=== PATIENT | female | born 1985 | race Caucasian/White ===

== ENCOUNTER 2023-07-11 19:41 | Outpatient (OUT) | payer BC, SELFPAY ==
[2023-07-15 12:09] LABS: Age Gdln ACOG Testing Note (.); HPV Aptima Negative (Negative); IGP, Aptima HPV, rfx 16/18,45 Note (.)
== END 2023-07-11 19:42 | disposition home or self-care (01) ==
PROVIDERS: PCP Family Medicine; Visit Provider Physician Assistant
DX: Z01.419 Encounter for gynecological examination (general) (routine) without abnormal findings (principal)
CPT/HCPCS: 87624; G0145

== ENCOUNTER 2023-08-31 11:40 | Outpatient (OUT) | payer BC, SELFPAY ==
--- OUTSIDE RECORDS SUMMARY | 2023-08-31 11:42 | XMS_ITS | CCD ---
Author Name Unknown Address [address] [facility] [address] [place] [address] Organization [facility] Care Team Providers Care English Instructor Name Role Phone RICHARD, DR ROLLINS Admitting Unavailable HOUSE, DR CORREA Primary Care Unavailable RICHARD, DR ROLLINS Attending Unavailable RICHARD, DR ROLLINS Consulting Unavailable HOUSE, DR CORREA Primary Care Unavailable RICHARD, DR ROLLINS Admitting Unavailable RICHARD, DR ROLLINS Attending Unavailable RICHARD, DR ROLLINS Consulting Unavailable ZIEBER, DR DANIEL Guajardo Consulting Unavailable OZZY LEWIS Consulting Unavailable OZZY LEWIS Primary Care Unavailable OZZY LEWIS Admitting Unavailable OZZY LEWIS Attending Unavailable TIMMIS, DR SHAH Attending Unavailable TIMMIS, DR SHAH Consulting Unavailable TIMMIS, DR SHAH Admitting Unavailable OZZY LEWIS Primary Care Unavailable JOSHUA, OZZY Primary Care Unavailable TIMMIS, DR SHAH Consulting Unavailable TIMMIS, DR SHAH Admitting Unavailable TIMMIS, DR SHAH Attending Unavailable TIMMIS, DR SHAH Consulting Unavailable TIMMIS, DR SHAH Admitting Unavailable TIMMIS, DR SHAH Attending Unavailable OZZY LEWIS Primary Care Unavailable LAM MENDEZ Consulting Unavailable MD Ozzy Lewis Attending Unavailable MD Ozzy Lewis Attending Unavailable AYO RAMOS Attending Unavailable NICHOLAS EDWARD Attending Unavailable Allergies Allergy Classification Reported Allergen(s) Allergy Type Date of Onset Reaction(s) Facility (1 source) peanut allergenic extract Drug Allergy 3 [facility] Repository (1 source) peanut; Translations: [Peanuts] Food allergy (disorder) [facility] Repository (1 source) No Known Medication Allergies; Translations: [No Known Medication Allergies] Propensity to adverse reactions (disorder) [facility] Repository Problems Active Problems Problem Classification Problem Date Documented Da te Episodic/Chronic Essential hypertension (1 source) Essential (primary) hypertension; Translations: [ESSENTIAL PRIMARY HYPERTENSION] Onset: 03-23-2021 Chronic Other aftercare (1 source) Other fdc (current) drug therapy; Translations: [OTH MEDICAL LEADER CURRENT DRUG THERAPY] Onset: 03-23-2021 Episodic Other upper respiratory disease (1 source) Other specified disorders of nose and nasal sinuses; Translations: [OTH SPEC D/O NOSE NASAL SINUSES] Onset: 03-23-2021 Episodic Other upper respiratory disease (1 source) Hypertrophy of nasal turbinates; Translations: [HYPERTROPHY OF NASAL TURBINATES] Onset: 03-23-2021 Episodic Other upper respiratory infections (5 sources) Chronic maxillary sinusitis; Translations: [CHRONIC MAXILLARY SINUSITIS] Onset: 03-11-2021 Chronic Unclassified (1 source) CONTACT W/AND (SUSP) EXPOS COVID-19; Translations: [CONTACT W/AND (SUSP) EXPOS COVID-19] Onset: 03-31-2021 Past or Other Problems Problem Classification Problem Date Documented Date Episodic/Chronic Immunizations and screening for infectious disease (1 source) Encounter for screening for human papillomavirus (HPV); Translations: [ENC SCREENING HUMAN PAPILLOMAVIRUS] Onset: 09-22-2020 Episodic Nonmalignant breast conditions (4 sources) Unspecified lump in the right breast, lower outer quadrant; Translations: [UNS LUMP IN RT BREAST LW OUTR QUAD] Onset: 10-28-2020 Episodic Other screening for suspected conditions (not mental disorders or infectious disease) (4 sources) Encounter for screening for malignant neoplasm of cervix; Translations: [ENC SCREENING MALIG NEOPLASM CERV] Onset: 09-18-2020 Episodic Results Test Name Value Interpretation Reference Range Facility Physician Referralon 023 Physician Referral [id number] .[id number]:127 Normal [facility] Physician Referralon 023 Physician Referral [id number]. [id number]:127 Normal [facility] Physician Referral [id number]. [id number]:127 [facility] Ambulatory Visit Summaryon 0 12-13-2022 Ambulatory Visit Summary HENNY FORD :1985 Visit Date:12/13/2022 Ambulatory Visit Instructions Your Diagnosis BMI 35.0-35.9,adult Class 1 obesity due to excess calories in adult Physical exam Family hx of colon cancer FHx: genetic disorder Your Care Team Attending Physician - Ozzy Lewis MD Primary Care Physician - Ozzy Lewis MD This Is Your Medications List cetirizine (cetirizine 10 mg Tab) cholecalciferol (Vitamin D 1000 intl units (25 mcg) Tab) Procedures Performed section, History of nasal sinus surgery. Discharge Vitals Heart Rate (Peripheral) 62 Respiratory Rate 16 Blood Pressure 142/96 Height 175.26 cm Height 69 in Weight 109.7 kg Weight 241.34 lb BMI 35.71 Medications What How Much When Instructions Unchanged cetirizine (cetirizine 10 mg Tab) 1 Tablets By Mouth Every day Unchanged cholecalciferol (Vitamin D 1000 intl units (25 mcg) Tab) 1 Tablets By Mouth Every day Medications and Immunizations Administered Not Given SARS-CoV-2 mRNA (tozinameran 5y-11y) vac, Postpone due to refusal Allergies Peanuts (Hives) No Known Medication Allergies Normal [facility] Family Medicine Office/Clini c Noteon 12-13-2022 Family Medicine Office/Clinic Note Chief Complaint wellness PE HPI Staff Here for wellness PE new to the practice Establish Care: History: none Last provider: Dr Lewis when was in [place] before Any recent labs: none Health Maintenance UTD: Colonoscopy: never Mammogram: last 2 years, family hx breast cancer ( mom's side) Pelvic/Pap: 2021 covid: refused Acute: Current issues/complaints: none History of Present Illness - Here to establish. - CPE - with 4 kids - Fhx of Colon CA - Brother at 33 - Needs Genetic Counseling - Colonoscopy Review of Systems PHQ Score Initial Depression Screen Score: 0 Physical Exam Vitals & Measurements HR: 62(Peripheral) RR: 16 BP: 142/96 SpO2: 100% HT: 69 in HT: 175.26 cm WT: 109.7 kg WT: 241.34 lb BMI: 35.71 General: alert, no acute distress ENMT: oral mucosa moist, Cardiovascular: regular rate and rhythm, normal peripheral perfusion Respiratory: Lungs CTA, respirations non labored Extremities: no deformity, no trauma Neurological: oriented x 4, LOC appropriate for age, CN II-XII intact, motor strength equal & normal bilaterally, speech normal Assessment/Plan 1. Physical exam (Z00.00: Encounter for general adult medical examination without abnormal findings) Anticipatory guidance given. Discussed diet and exercise. Discussed immunizations. Labs ordered Ordered: CBC w/ Auto Diff Comprehensive Metabolic Panel [facility] External Ambulatory Referral [facility] External Ambulatory Referral Lipid Panel TSH With T4fr Reflex 2. Family hx of colon cancer (Z80.0: Family history of malignant neoplasm of digestive organs) - Will send for colonoscopy Ordered: CBC w/ Auto Diff Comprehensive Metabolic Panel [facility] External Ambulatory Referral [facility] External Ambulatory Referral Lipid Panel TSH With T4fr Reflex 3. FHx: genetic disorder (Z84.89: Family history of other specified conditions) - Send to genetic counseling Ordered: CBC w/ Auto Diff Comprehensive Metabolic Panel [facility] External Ambulatory Referral [facility] External Ambulatory Referral Lipid Panel TSH With T4fr Reflex 4. BMI 35.0-35.9,adult (Z68.35: Body mass index [BMI] 35.0-35.9, adult) - BMI education given. - Discussed diet and exercise Ordered: CBC w/ Auto Diff Comprehensive Metabolic Panel [facility] External Ambulatory Referral [facility] External Ambulatory Referral Lipid Panel TSH With T4fr Reflex 5. Class 1 obesity due to excess calories in adult (E66.09: Other obesity due to excess calories) - As above. Ordered: CBC w/ Auto Diff Comprehensive Metabolic Panel [facility] External Ambulatory Referral [facility] External Ambulatory Referral Lipid Panel TSH With T4fr Reflex Follow-up No qualifying data available Problem List/Past Medical History Ongoing Chronic maxillary sinusitis Essential hypertension Historical No qualifying data Procedure/Surgical History section, History of nasal sinus surgery. 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 Never Smokeless Tobacco Use:., 12/13/2022 Family History Primary malignant neoplasm of colon: Brother. Immunizations Vaccine Date Status Comments SARS-CoV-2 mRNA (tozinameran 5y-11y) vac - Not Given Postpone due to refusal diphtheria/pertussis, acel/tetanus adult 08/11/2021 Recorded influenza virus vaccine, inactivated 06/05/2012 Recorded influenza virus vaccine, inactivated 07/26/2011 Recorded diphtheria/pertussis, acel/tetanus adult 07/15/2011 Recorded Normal [facility] Comment on above: Result Comment: Elec tronically Signed By: Joshua NASSAR, Ozzy Doe\.br\Date and Time Signed: 12/13/22 17:24 EDT PREG HCG QUALon 03-17-2021 , QUAL Negative Normal NEGATIVE [facility] Comment on above: Performed By: #### P REG #### [facility] [address] [place], [place] [address] Marcus Rodrigez ASYMPTOMATIC COVID-19 ANTIGE Non 03-14-2021 EUA Statement SEE BELOW Normal [facility] Comment on above: Result Comment: This test has not been FDA cleared or approved, but has been authorized by the FDA under an Emergency Use Authorization (EUA) for use by authorized laboratories certified under CLIA that meet the requirements to perform moderate or high complexity testing. This test has been authorized only for the detection of proteins from SARS-CoV-2, not for any other viruses or pathogens. The emergency use of this test is authorized for the duration of the declaration that circumstances exist justifying the authorization of emergency use of in vitro diagnostic tests for detection and/or diagnosis of Covid-19 under section 564(b)(1) of the Act, 21 U.S.C. 360bbb-3(b)(1), unless the declaration is terminated or authorization is revoked sooner. Performed By: #### C VDAGA ####[facility] [address] [place], [place] [address]CwikdqMarcus Rodrigez SARS-CoV-2 (COVID-19) RNA DREW+probe Ql (Unsp spec) Negative Normal NEGATIVE [facility] Comment on above: Result Comment: Nega tive results are presumptive. They do not preclude infection and should not be used as the sole basis for treatment decisions. Additional confirmatory testing by a molecular method should be considered. Performed By: #### C VDAGA ####[facility] [address] [place] [id number] Rodrigez CBC AUTO DIFFon 03-04-2021 BASO # 0.0 103/ul Normal 0.0-0.1 [facility] Comment on above: Performed By: #### C BC ####[facility] [address] [place] [id number] Rain Basophils/100 WBC (Bld) 0.3 % Normal 0.2-2.0 [facility] Comment on above: Performed By: #### C BC ####[facility] [address] [place] [address] Rain EO # 0.4 103/ul Normal 0.0-0.7 [facility] Comment on above: Performed By: #### C BC ####[facility] [address] Rain Eosinophils/100 WBC (Bld) 4.6 % Normal 0.9-7.0 [facility] Comment on above: Performed By: #### C BC ####[facility] [address] [place] [address] Rain Erythrocyte distribution width (RBC) [Ratio] 13.6 % Normal 11.0-15.0 [facility] Comment on above: Performed By: #### C BC ####[facility] [address] [place] [id number] Rain Hematocrit (Bld) [Volume fraction] 41.4 % Normal 36.0-48.0 [facility] Comment on above: Performed By: #### C BC ####[facility] [address] [place] [id number] Rain Hemoglobin (Bld) [Mass/Vol] 13.4 g/dL Normal 12.0-16.0 [facility] Comment on above: Performed By: #### C BC ####[facility] [address] [place] [address] Rain IG # 0.03 10e3/ul Normal 0.00-0.03 [facility] Comment on above: Performed By: #### C BC ####[facility] [address] Rain IG % 0.4 % Normal 0.0-0.5 [facility] Comment on above: Performed By: #### C BC ####[facility] [address] Rain LYMPH # 2.6 103/ul Normal 1.2-3.8 [facility] Comment on above: Performed By: #### C BC ####[facility] [address] [place] [address] Rain Lymphocytes/100 WBC (Bld) 34.6 % Normal 20.5-60.0 [facility] Comment on above: Performed By: #### C BC ####[facility] [address] [place] [address] Rain MANUAL DIFF REQ NO Normal [facility] Comment on above: Performed By: #### C BC ####[facility] [address] [place] [address] Rain MCH (RBC) [Entitic mass] 27.7 pg Normal 26.7-34.0 [facility] Comment on above: Performed By: #### C BC ####[facility] [address] [place] [address] Rain MCHC (RBC) [Mass/Vol] 32.4 g/dL Normal 29.9-35.2 [facility] Comment on above: Performed By: #### C BC ####[facility] [address] [place] [address] Rain MCV (RBC) [Entitic vol] 85.7 fL Normal 81.0-99.0 [facility] Comment on above: Performed By: #### C BC ####[facility] [address] [place] [address] Rain MONO # 0.6 103/ul Normal 0.3-0.8 [facility] Comment on above: Performed By: #### C BC ####[facility] [address] [place], [place] [address]Isoecr Karen Monocytes/100 WBC (Bld) 7.8 % Normal 1.7-12.0 [facility] Comment on above: Performed By: #### C BC ####[facility] [address] [place], [place] [address]Pefpks Rain NEUT # 4.0 103/ul Normal 1.4-6.5 [facility] Comment on above: Performed By: #### C BC ####[facility] [address] [place], [place] [address]Frflrp Rain Neutrophils/100 WBC (Bld) 52.3 % Normal 43.0-75.0 [facility] Comment on above: Performed By: #### C BC ####[facility] [address] [place], [place] [address]Gerjsee Rodrigez Platelet mean volume (Bld) [Entitic vol] 10.7 fL Normal 9.5-13.5 [facility] Comment on above: Performed By: #### C BC ####[facility] [address] [place] [address]Smkgfn Rain PLT 291 103/ul Normal 150-450 [facility] Comment on above: Performed By: #### C BC ####[facility] [address] [place] [address]Oruqkr Rain RBC 4.83 106/ul Normal 4.20-5.40 [facility] Comment on above: Performed By: #### C BC ####[facility] [address] [place] [address]Hbjiku Rain WBC 7.6 103/ul Normal 4.0-11.0 [facility] Comment on above: Performed By: #### C BC ####[facility] [address] [place] [address]Oajhkq Karen PROTIMEon 03-04-2021 INR Coag (PPP) [Relative time] 1.00 {INR} Normal [facility] Comment on above: Performed By: #### P TT, PT ####[facility] [address] [place], [place] [address]GndrefMarcus Rodrigez INR GUIDELINES SEE BELOW Normal [facility] Comment on above: Result Comment: LEW RED INR: 2.0 - 3.0 CONDITIONS NOT LISTED BELOW 2.5 - 3.5 FOR PROSTHETIC HEART VALVE REPLACEMENT 2.5 - 3.5 RECURRENT THROMBOSIS Performed By: #### P TT, PT ####[facility] [address] [place] [address]Marcus Rodrigez PT Coag (PPP) [Time] 10.8 s Normal 9.0-11.6 [facility] Comment on above: Performed By: #### P TT, PT ####[facility] [address] [place] [id number] Rodrigez PTTon 03-04-2021 aPTT Coag (Bld) [Time] 27.9 s Normal 22.3-36.2 [facility] Comment on above: Performed By: #### P TT, PT ####[facility] [address] [place] [id number] Rodrigez CBC AUTO DIFFon 01-14-2021 BASO # 0.0 103/ul Normal 0.0-0.1 [facility] Comment on above: Performed By: #### C BC #### [facility] [address] [place], [place] [id number] Marcus Rain Basophils/100 WBC (Bld) 0.4 % Normal 0.2-2.0 [facility] Comment on above: Performed By: #### C BC #### [facility] [address] [place], [place] [id number] Marcus Rain EO # 0.4 103/ul Normal 0.0-0.7 [facility] Comment on above: Performed By: #### C BC #### [facility] [address] [place], [place] [phone] Marcus Rain Eosinophils/100 WBC (Bld) 4.6 % Normal 0.9-7.0 [facility] Comment on above: Performed By: #### C BC #### [facility] [address] [place], [place] [phone] Marcusjese Rodrigez Erythrocyte distribution width (RBC) [Ratio] 13.4 % Normal 11.0-15.0 [facility] Comment on above: Performed By: #### C BC #### [facility] [address] [place] [address] Marcusjese Rodrigez Hematocrit (Bld) [Volume fraction] 40.3 % Normal 36.0-48.0 [facility] Comment on above: Performed By: #### C BC #### [facility] [address] [place] [address] Marcus Rain Hemoglobin (Bld) [Mass/Vol] 13.3 g/dL Normal 12.0-16.0 [facility] Comment on above: Performed By: #### C BC #### [facility] [address] [place] [address] Marcusjese Rodrigez IG # 0.02 10e3/ul Normal 0.00-0.03 [facility] Comment on above: Performed By: #### C BC #### [facility] [address] [place] [address] Marcus Rain IG % 0.2 % Normal 0.0-0.5 [facility] Comment on above: Performed By: #### C BC #### [facility] [address] [place] [address] Marcus Rain LYMPH # 3.3 103/ul Normal 1.2-3.8 [facility] Comment on above: Performed By: #### C BC #### [facility] [address] [place] [address] Marcus Rodrigez Lymphocytes/100 WBC (Bld) 35.7 % Normal 20.5-60.0 [facility] Comment on above: Performed By: #### C BC #### [facility] [address] [place] [address] Marcus Rodrigez MANUAL DIFF REQ NO Normal [facility] Comment on above: Performed By: #### C BC #### [facility] [address] [place] [address] Marcus Rodrigez MCH (RBC) [Entitic mass] 27.9 pg Normal 26.7-34.0 [facility] Comment on above: Performed By: #### C BC #### [facility] [address] [place] [id number] Marcus Rodrigez MCHC (RBC) [Mass/Vol] 33.0 g/dL Normal 29.9-35.2 [facility] Comment on above: Performed By: #### C BC #### [facility] [address] [place] [id number] Marcus Rodrigez MCV (RBC) [Entitic vol] 84.7 fL Normal 81.0-99.0 [facility] Comment on above: Performed By: #### C BC #### [facility] [address] [place], [place] [phone] Marcus Rodrigez MONO # 0.7 103/ul Normal 0.3-0.8 [facility] Comment on above: Performed By: #### C BC #### [facility] [address] [place], [place] [phone] Marcus Rodrigez Monocytes/100 WBC (Bld) 7.1 % Normal 1.7-12.0 [facility] Comment on above: Performed By: #### C BC #### [facility] [address] [place], [place] [id number] Marcus Rodrigez NEUT # 4.9 103/ul Normal 1.4-6.5 [facility] Comment on above: Performed By: #### C BC #### [facility] [address] [place], [place] [id number] Marcus Rodrigez Neutrophils/100 WBC (Bld) 52.0 % Normal 43.0-75.0 [facility] Comment on above: Performed By: #### C BC #### [facility] [address] [place], [place] [id number] Marcus Rodrigez Platelet mean volume (Bld) [Entitic vol] 10.4 fL Normal 9.5-13.5 [facility] Comment on above: Performed By: #### C BC #### [facility] [address] [place], [place] [id number] Marcus Rain PLT 320 103/ul Normal 150-450 [facility] Comment on above: Performed By: #### C BC #### [facility] [address] [place], [place] [address] Marcus Rodrigez RBC 4.76 106/ul Normal 4.20-5.40 [facility] Comment on above: Performed By: #### C BC #### [facility] [address] [place], [place] [address] Marcus Rodrigez WBC 9.3 103/ul Normal 4.0-11.0 [facility] Comment on above: Performed By: #### C BC #### [facility] [address] [place], [place] [address] Marcus Rodrigez Covid-19 PCR (CVDTBH)on SARS-CoV-2 (COVID-19) RNA DREW+probe Ql (Unsp spec) Not detected Normal NOT DETECTED [facility] Comment on above: Result Comment: This test is not yet approved or cleared by the [place] FDA. When there are no FDA-approved or cleared tests available, and other criteria are met, FDA can make tests available under an emergency access mechanism called an Emergency Use Authorization (EUA). The EUA for this test is supported by the Supervisor Maintenance of Health and Human Service's (HHS's) declaration that circumstances exist to justify the emergency use of in vitro diagnostics for the detection and/or diagnosis of the virus that causes COVID-19. This EUA will remain in effect (meaning this test can be used) for the duration of the COVID-19 declaration justifying emergency of IVDs, unless it is terminated or revoked by FDA (after which the test may no longer be used). When diagnostic testing is negative, the possibility of a false negative should be considered in the context of a patient's recent exposures and the presence of clinical signs and symptoms consistent with SARS-CoV-2. Performed By: #### C VDTBH #### [facility] [address] [place], [place] [address] Marcus Rodrigez GLYCOHEMOGLOBIN A1Con 2020 ADA RECOMMENDATION ADA THERAPEUTIC TARGET 6.0 - 7.0 ACTION SUGGESTED > 7.0 Normal [facility] Comment on above: Performed By: #### A 1C ####[facility] [address] [place], [place] [address]Ivxslf Rain Glucose [Mass/Vol] 126 mg/dL Normal [facility] Comment on above: Performed By: #### A 1C ####[facility] [address] [place], [place] [address]Biythc Rain HbA1c (Bld) [Mass fraction] 6.0 % Normal <=6.0 [facility] Comment on above: Performed By: #### A 1C ####[facility] [address] [place], [place] [address]Zzbwpu Rain LIPID PROFILEon 01-14-2021 CHOL-HDL RATIO NORM SEE BELOW Normal [facility] Comment on above: Result Comment: 3.3 - 4.4 LOW RISK 4.4 - 7.1 AVERAGE RISK 7.1 - 11.0 MODERATE RISK >11.0 HIGH RISK Performed By: #### C MP, TSH, LIPID #### [facility] [address] [place], [place] [address] Marcus Rain Cholesterol [Mass/Vol] 180 mg/dL Normal <=200 [facility] Comment on above: Performed By: #### C MP, TSH, LIPID #### [facility] [address] [place], [place] [address] Marcus Rain Cholesterol in HDL [Mass/Vol] 52 mg/dL Normal [facility] Comment on above: Performed By: #### C MP, TSH, LIPID #### [facility] [address] [place], [place] [address] Marcus Rain Cholesterol in LDL [Mass/Vol] 107.8 mg/dL Normal [facility] Comment on above: Performed By: #### C MP, TSH, LIPID #### [facility] [address] [place], [place] [address] Marcus Rain Cholesterol.total/Cho lesterol in HDL [Mass ratio] 3.5 {ratio} Normal [facility] Comment on above: Performed By: #### C MP, TSH, LIPID #### [facility] [address] [place], [place] [address] Marcus Rain HDL NORMAL > or = 60 mg/dl - LO W CARDIOVASCULAR RISK <40 mg/dl - HIGH CARDIOVASCULAR RISK Normal [facility] Comment on above: Performed By: #### C MP, TSH, LIPID #### [facility] [address] [id number] Marcus Rain LDL CALC NORMAL SEE BELOW Normal [facility] Comment on above: Result Comment: <100 mg/dl OPTIMAL 100 - 129 mg/dl NEAR OR ABOVE OPTIMAL 130 - 159 mg/dl BORDERLINE HIGH 160 - 189 mg/dl HIGH >190 mg/dl VERY HIGH Performed By: #### C MP, TSH, LIPID #### [facility] [address] [address] Marcus Rain Triglyceride [Mass/Vol] 101 mg/dL Normal <=150 [facility] Comment on above: Performed By: #### C MP, TSH, LIPID #### [facility] [address] [id number] Marcus Rain VLDL CALC 20.2 mg/dL Normal [facility] Comment on above: Performed By: #### C MP, TSH, LIPID #### [facility] [address] [id number] Marcus Rain PROF 14(COMP METB)on 021 Albumin [Mass/Vol] 3.9 g/dL Normal 3.5-5.0 [facility] Comment on above: Performed By: #### C MP, TSH, LIPID #### [facility] [address] [place], [place] [id number] Marcus Rain Albumin/Globulin [Mass ratio] 1.1 {ratio} Normal [facility] Comment on above: Performed By: #### C MP, TSH, LIPID #### [facility] [address] [id number] Marcus Rain ALP [Catalytic activity/Vol] 79 U/L Normal 38-126 [facility] Comment on above: Performed By: #### C MP, TSH, LIPID #### [facility] [address] [id number] Marcus Rain ALT [Catalytic activity/Vol] 27 U/L Normal 9-52 [facility] Comment on above: Performed By: #### C MP, TSH, LIPID #### [facility] [address] [address] Marcus Rain Anion gap [Moles/Vol] 11.5 mmol/L Normal Th [facility] Comment on above: Performed By: #### C MP, TSH, LIPID #### [facility] [address] [address] Marcus Rain AST [Catalytic activity/Vol] 13 U/L Critically low 14-36 [facility] Comment on above: Performed By: #### C MP, TSH, LIPID #### [facility] [address] [address] Marcus Rain Bilirubin [Mass/Vol] 0.3 mg/dL Normal 0.2-1.3 [facility] Comment on above: Performed By: #### C MP, TSH, LIPID #### [facility] [address] [address] Marcus Rain Calcium [Mass/Vol] 9.6 mg/dL Normal 8.4-10.2 [facility] Comment on above: Performed By: #### C MP, TSH, LIPID #### [facility] [address] [address] Marcus Rain Chloride [Moles/Vol] 105 mmol/L Normal 98-107 [facility] Comment on above: Performed By: #### C MP, TSH, LIPID #### [facility] [address] [address] Marcus Rain CO2 [Moles/Vol] 28.2 mmol/L Normal 22.0-30.0 [facility] Comment on above: Performed By: #### C MP, TSH, LIPID #### [facility] [address] [address] Marcus Rain Creatinine [Mass/Vol] 0.68 mg/dL Normal 0.52-1.04 [facility] Comment on above: Performed By: #### C MP, TSH, LIPID #### [facility] [address] [address] Marcus Rain EGFR-AF COOK ISLANDER >60 Normal >=60 [facility] Comment on above: Performed By: #### C MP, TSH, LIPID #### [facility] [address] [id number] Marcus Rain EGFR-NON AF [place] ISLANDER >60 Normal >=60 [facility] Comment on above: Performed By: #### C MP, TSH, LIPID #### [facility] [address] [id number] Marcus Rain Globulin (S) [Mass/Vol] 3.5 g/dL Normal [facility] Comment on above: Performed By: #### C MP, TSH, LIPID #### [facility] [address] [phone] Marcus Rain Glucose [Mass/Vol] 98 mg/dL Normal 74-106 [facility] Comment on above: Performed By: #### C MP, TSH, LIPID #### [facility] [address] [place] [address] Marcus Rain Potassium [Moles/Vol] 3.7 mmol/L Normal 3.4-5.0 [facility] Comment on above: Performed By: #### C MP, TSH, LIPID #### [facility] [address] [address] Marcus Rain Protein [Mass/Vol] 7.4 g/dL Normal 6.1-8.2 [facility] Comment on above: Performed By: #### C MP, TSH, LIPID #### [facility] [address] [place], [place] [id number] Marcus Rain Sodium [Moles/Vol] 141 mmol/L Normal 137-145 [facility] Comment on above: Performed By: #### C MP, TSH, LIPID #### [facility] [address] [address] Marcus Rain Urea nitrogen [Mass/Vol] 18.0 mg/dL Critically high 7.0-17.0 [facility] Comment on above: Performed By: #### C MP, TSH, LIPID #### [facility] [address] [phone] Marcus Rain Urea nitrogen/Creatinine [Mass ratio] 26.5 mg/mg Normal [facility] Comment on above: Performed By: #### C MP, TSH, LIPID #### [facility] [address] [place], [place] [address] Marcus Rodrigez TSHon 01-14-2021 TSH 1.136 uIU/mL Normal 0.470-4.680 [facility] Comment on above: Performed By: #### C MP, TSH, LIPID #### [facility] [address] [place], [place] [address] Marcus Rain TSH RANGE SEE BELOW Normal [facility] Comment on above: Result Comment: <0.3 4 UIU/ml HYPERTHYROID 0.34-5.60 UIU/ml EUTHYROID >5.60 UIU/ml HYPOTHYROID Performed By: #### C MP, TSH, LIPID #### [facility] [address] [place], [place] [address] Marcus Rain MG MAMM DIAGNOSTIC 3D KARTHIKEYAN CA Don 10-28-2020 MG MAMM DIAGNOSTIC 3D KARTHIKEYAN CAD Patient: HENNY FORD Exam Date: 10/28/2020 : 1985 Gender:F Ordering : DR AYO RAMOS . Admission #: [id number] Family : Order #: [id number] CLICK HERE TO VIEW EXAM RADIOLOGY REPORT PROCEDURE: MAMMOGRAM DIAGNOSTIC 3D BILATERAL CAD, 10/28/2020, 10:35 ULTRASOUND BREAST RIGHT LIMITED, 10/28/2020, 11:12 COMPARISON: None. INDICATIONS: Lump in lower outer quadrant of right breast Calculator Name NCI Breast Cancer Risk Assessment Tool 5 Year Breast Cancer Risk 0.30% Lifetime Breast Cancer Risk 9.20% Personal Breast Cancer No Personal Ovarian Cancer No Treatments None Family Cancers Aunt-maternal with breast cancer at age 45; Grandfather-maternal with bone cancer at age 80; Uncle-maternal with liver cancer at age 60; Grandfather-paternal with pancreatic cancer at age 60. LOCATION: [facility] BREAST COMPOSITION: Heterogeneously dense, which may obscure small masses. FINDINGS: DIAGNOSTIC CATEGORY 1--NEGATIVE ASSESSMENT. RIGHT BREAST: A skin surface marker is present over the lower-outer quadrant palpable lump; no underlying mammographic abnormality. Ultrasound evaluation demonstrates normal appearing fibroglandular tissue. LEFT BREAST: No significant suspicious finding. RECOMMENDATIONS: CLINICAL EVALUATION. PLEASE NOTE: A NORMAL MAMMOGRAM DOES NOT EXCLUDE THE POSSIBILITY OF BREAST CANCER. A CLINICALLY SUSPICIOUS PALPABLE LUMP SHOULD BE BIOPSIED. Dictated by: Daniel Hampton M.D. on 10/28/2020 at 12:59 Approved by: Daniel Hampton M.D. on 10/28/2020 at 13:08 Normal [facility] US BREAST RIGHT LIMITEDon US BREAST RIGHT LIMITED Patient: HENNY FORD Exam Date: 10/28/2020 : 1985 Gender:F Ordering : DR AYO RAMOS . Admission #: [id number] Family : Order #: [id number] CLICK HERE TO VIEW EXAM RADIOLOGY REPORT PROCEDURE: MAMMOGRAM DIAGNOSTIC 3D BILATERAL CAD, 10/28/2020, 10:35 ULTRASOUND BREAST RIGHT LIMITED, 10/28/2020, 11:12 COMPARISON: None. INDICATIONS: Lump in lower outer quadrant of right breast Calculator Name NCI Breast Cancer Risk Assessment Tool 5 Year Breast Cancer Risk 0.30% Lifetime Breast Cancer Risk 9.20% Personal Breast Cancer No Personal Ovarian Cancer No Treatments None Family Cancers Aunt-maternal with breast cancer at age 45; Grandfather-maternal with bone cancer at age 80; Uncle-maternal with liver cancer at age 60; Grandfather-paternal with pancreatic cancer at age 60. LOCATION: [facility] BREAST COMPOSITION: Heterogeneously dense, which may obscure small masses. FINDINGS: DIAGNOSTIC CATEGORY 1--NEGATIVE ASSESSMENT. RIGHT BREAST: A skin surface marker is present over the lower-outer quadrant palpable lump; no underlying mammographic abnormality. Ultrasound evaluation demonstrates normal appearing fibroglandular tissue. LEFT BREAST: No significant suspicious finding. RECOMMENDATIONS: CLINICAL EVALUATION. PLEASE NOTE: A NORMAL MAMMOGRAM DOES NOT EXCLUDE THE POSSIBILITY OF BREAST CANCER. A CLINICALLY SUSPICIOUS PALPABLE LUMP SHOULD BE BIOPSIED. Dictated by: Daniel Hampton M.D. on 10/28/2020 at 12:59 Approved by: Daniel Hampton M.D. on 10/28/2020 at 13:08 Normal [facility] PAP ACOG PANEL 2: 30 to 65on 09-25-2020 . . Normal [facility] Comment on above: Result Comment: Perf ormed at: WB Performed By: #### [id number] #### [facility] [address] [place] [address] Marcus Rodrigez Age Gdln ACOG Testing 30-65 Normal [facility] Comment on above: Performed By: #### [id number] #### [facility] [address] [place] [address] Marcus Rodrigez DIAGNOSIS: Comment Normal [facility] Comment on above: Result Comment: NEGA TIVE FOR INTRAEPITHELIAL LESION OR MALIGNANCY. SPECIMEN REPROCESSED FOR INTERPRETATION. Performed at: WB Performed By: #### [id number] #### [facility] [address] [place] [address] Marcus Rain HPV Aptima Negative Normal Negative [facility] Comment on above: Result Comment: This nucleic acid amplification test detects fourteen high-risk HPV types (16,18,31,33,35,39,45,51,52,56,58,59,66,68) without differentiation. Performed at: =G Performed By: #### [id number] #### [facility] [address] [place] [address] Marcus Rodrigez Methodology: CTIM Normal [facility] Comment on above: Result Comment: The Thin Prep(R) Cfo was unable to read this specimen. Therefore a manual review was performed. Performed at: WB Performed By: #### [id number] #### [facility] [address] [place] [address] Marcus Rain Note: Comment Normal [facility] Comment on above: Result Comment: The Pap smear is a screening test designed to aid in the detection of premalignant and malignant conditions of the uterine cervix. It is not a diagnostic procedure and should not be used as the sole means of detecting cervical cancer. Both false-positive and false-negative reports do occur. . Performed at: WB Performed By: #### [id number] #### [facility] [address] [place] [address] Marcus Rodrigez Performed by: Comment Normal [facility] Comment on above: Result Comment: Vick Thakkar Orthopedic Coder (ASCP) Performed at: WB Performed By: #### [id number] #### [facility] [address] [place] [address] Marcus Rodrigez Specimen adequacy: Comment Normal [facility] Comment on above: Result Comment: Sati sfactory for evaluation. Endocervical and/or squamous metaplastic cells (endocervical component) are present. Performed at: WB Performed By: #### [id number] #### [facility] [address] [place], [place] [address] Marcus Rodrigez Encounters Encounter Date Encounter Type Care Provider Facility Start: 08-22-2023 End: 08-22-2023 ambulatory AYO RAMOS Not Available Start: 07-11-2023 End: 07-11-2023 ambulatory NICHOLAS EDWARD Not Available Start: 06-23-2023 End: 06-24-2023 ambulatory MD Ozzy Lewis Facility:[facility] Start: 12-13-2022 End: 12-14-2022 ambulatory MD Ozzy Lewis Facility:[facility] Start: 12-10-2022 ambulatory MD Ozzy Lewis Facility :[facility] Start: 12-10-2022 ambulatory MD Ozzy Lewis Facility :[facility] Start: 03-31-2021 Encounter for prepro cedural laboratory examination DR PABLO CHAMBERS [facility] Start: 03-17-2021 End: 03-17-[address] PABLO CHAMBERS Facility:[facility] Start: 03-14-2021 End: 03-15-[address] PABLO CHAMBERS Facility:[facility] Start: 03-14-2021 End: 03-15-2021 Encounter for preprocedural laboratory examination DR PABLO CHAMBERS Facility:[facility] Start: 03-04-2021 End: 03-05-2021 ambulatory OZZY LEWIS Facility:[facility] Start: 01-18-2021 Encounter for genera l adult medical examination without abnormal findings OZZY LEWIS [facility] Start: 01-13-2021 End: 01-14-2021 ambulatory OZZY LEWIS Facility:[facility] Start: 01-13-2021 End: 01-14-2021 Encounter for general adult medical examination without abnormal findings OZZY LEWIS Facility:[facility] Start: 10-28-2020 End: 10-29-[address] MADELINE FORD Facility:[facility] Start: 09-18-2020 End: 09-18-[address] AYO RAMOS Facility:[facility] Payers Date Payer Category Payer Unknown [id number] 2022 Unknown [id number] 2019 Unknown [id number] 1985 Unknown [id number] 2.16.84 [id number] 1985 Unknown [id number] 2.16.84 [id number] 1984 Unknown [id number] 2.16.84 [id number] 1984 Unknown [id number] 2.16.84 [id number] 1984 Unknown [id number] 2.16.84 [id number] 1984 Unknown [id number] 2.16.84 [id number] 1984 Unknown [id number] 2.16.8 [id number] 1984 Unknown [id number] 2.16.8 [id number] 1984 Unknown [id number] 2.16.84 [id number] 1984 Unknown [id number] 2.16.840 .[id number] Clinical Note 03-17-2021 Note Date & Type Note Facility 03-17-2021 Note OPERATIVE NOTE OPERATION DATE: 03-17-21 PRIMARY CARE PHYSICIAN:Dr. Lewis ANESTHETIC:General endotracheal. PREOPERATIVE DIAGNOSIS: 1. Bilateral chronic maxillary sinusitis. 2. Bilateral tahir bullosa. 3. Bilateral inferior turbinate hypertrophy. POSTOPERATIVE DIAGNOSIS: Same as above. PROCEDURE NAME:Bilateral maxillary antrostomy, removal of tahir bullosa and inferior turbinate submucosal resection. COMPLICATIONS: None. FINDINGS: Bilateral tahir bullosa and bilateral inferior turbinate hypertrophy. Sinus anatomy grossly normal. INDICATIONS: This 35 year-old woman presented with chronic maxillary sinusitis and nasal obstruction unresponsive to aggressive medical management. PROCEDURE: The patient was identified in the holding area and taken back to the OR where she was placed in the supine position. After induction of general endotracheal anesthesia, the table was turned, the head elevated 20 degrees; the face was draped in a sterile fashion. Afrin soaked pledgets were placed in each side of the nose and after waiting adequate time for decongestion the nose was copiously irrigated bilaterally. The right nose was then approached with the nasal endoscope and the middle turbinate and lateral nasal wall were injected with lidocaine 1% with 1:100,000 epinephrine. The same was done on the left hand side of the nose. After waiting adequate time for decongestion, the right nose was approached with the nasal endoscope. A curved scissor to the right was used to excise the tahir bullosa and it was removed with an ethmoid forceps. The posterior root of the middle turbinate was prophylactically cauterized to minimize the risk of postoperative bleeding. The uncinate process was incised and removed with a straight ethmoid forceps and then the natural ostium of the maxillary sinus was identified with the Kiara seeker and opened posteriorly with a straight cutting forceps and anteriorly with a back cutting forceps. The maxillary sinus was then irrigated. The right inferior turbinate was then injected with lidocaine 1% with 1:100,000 epinephrine. Attention was turned to the left nose and the tahir bullosa removal and maxillary antrostomy proceeded as it had on the right. Then the left inferior turbinate was injected with Lidocaine 1% with 1:100,000 epinephrine. Attention was then turned to the right nose, a stab incision was made in the anterior inferior turbinate and a caudal elevator used to create a tunnel along the medial surface of the turbinate bone. A 2.5 mm microdebrider was then used to exonerate the submucosal tissues of the turbinate and it was outfractured with a long nasal speculum. Attention was turned to the left inferior turbinate and the same procedure performed. Both sides of the nose were again copiously irrigated and the patient was awakened and taken to the Recovery Room in good condition. [facility] Signed and Approved by: DR PABLO CHAMBERS 03/24/2021 08:24:00 [facility] Summary Purpose Family History No Family History Records FoundNo Family History Records FoundNo Family History Records Found Advance Directives No Advanced Directives Records FoundNo Advanced Directives Records FoundNo Advanced Directives Records Found Additional Source Comments INFORMATION SOURCE (unrecogn ized section and content) DATE CREATED AUTHOR 04/02/2021 [facility] DATE CREATED AUTHOR AUTHOR'S ORGANIZ ATION 06/26/2023 [facility] DATE CREATED AUTHOR AUTHOR'S ORGANIZ ATION 08/22/2023 [facility] FOR RECORDS PERTAINING TO PATIENTS WHO ARE OR HAVE BEEN ENROLLED IN A CHEMICAL DEPENDENCY/SUBSTANCEABUSE PROGRAM, SOME INFORMATION MAY BE OMITTED. This clinical summary was aggregated from multiple sources. Caution should be exercised in using it in the provision of clinical care. This summary normalizes information from multiple sources, and as a consequence, information in this document may materially change the coding, format and clinical context of patient data. In addition, data may be omitted in some cases. CLINICAL DECISIONS SHOULD BE BASED ON THE PRIMARY CLINICAL RECORDS. [facility]. provides no warranty or guarantee of the accuracy or completeness of information in this document.
--- NOTE | 2023-08-31 11:46 | US_ITS ---
The [address] [address] Patient Name: HENNY FORD MRN: [id number] date: 1985 Sex: F Assigned Patient Location: US Current Patient Location: US Accession/Order Number: [id number] Exam Date: 08/31/2023 11:48 Report Date: 08/31/2023 12:33 At the request of: AYO RAMOS Procedure: US pelvis w/ transvaginal EXAMINATION: US pelvis w/ transvaginal HISTORY: pelvic pain in female R10.2 COMPARISON: No relevant comparison available. FINDINGS: The uterus is normal in size, contour and echotexture, anteverted, retroflexed. The uterus measures 7.7 x 4.4 x 4.6 cm. The endometrium measures 7.4 mm, normal. Linear hyperechogenicity identified within the endometrial cavity, this appears to extend into the anterior myometrium The right ovary is normal measuring 2.4 x 2.4 x 2.0 cm. Normal color and Doppler The left ovary is normal measuring 3.0 x 2.2 x 1.5 cm. Normal color and Doppler No free fluid US/US pelvis w/ transvaginal IMPRESSION: Suspected extension of the IUD into the anterior myometrium Electronically authenticated by: EVER KRISHNA Date: 08/31/2023 12:33
== END 2023-08-31 11:41 | disposition home or self-care (01) ==
LOC: US 11:40
PROVIDERS: PCP Family Medicine; Visit Provider Obstetrics & Gynecology
DX: R10.2 Pelvic and perineal pain (principal); Z97.5 Presence of (intrauterine) contraceptive device
CPT/HCPCS: 76830; 76856

== ENCOUNTER 2023-08-31 12:17 | Outpatient (OUT) | payer BC, SELFPAY ==
--- OUTSIDE RECORDS SUMMARY | 2023-08-31 12:20 | XMS_ITS | CCD ---
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 Name Role Phone RICHARD, DR ROLLINS Admitting [...] Unavailable LAM MENDEZ Consulting Unavailable MD Ozzy Leiws Attending Unavailable MD Ozzy Lewis Attending Unavailable AYO RAMOS Attending Unavailable NICHOLAS EDWARD Attending Unavailable Allergies Allergy Classification Reported Allergen(s) Allergy Type Date of Onset Reaction(s) Facility (1 source) peanut allergenic extract Drug Allergy 3 [facility] Repository (1 source) peanut; Translations: [Peanuts] Food allergy (disorder) [facility] Repository (1 source) No Known Medication Allergies; Translations: [No Known Medication Allergies] Propensity to adverse reactions (disorder) [facility] Repository Problems Active Problems Problem Classification Problem Date Documented Da te Episodic/Chronic Essential hypertension (1 source) Essential (primary) hypertension; Translations: [ESSENTIAL PRIMARY HYPERTENSION] Onset: 03-23-2021 Chronic Other aftercare (1 source) Other penitentiary (current) drug therapy; Translations: [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 00CD:127 Normal [facility] Physician Referral [id number]#1. 00CD:127 [facility] Ambulatory Visit Summaryon 0 12-13-2022 Ambulatory Visit [...] Last provider: Dr Lewis when was in [place] before Any recent labs: none Health Maintenance [...] CBC w/ Auto Diff Comprehensive Metabolic Panel [facility] [place] Ref[place] [facility] [place] Ref[place] Lipid Panel TSH With T4fr Reflex 2. Family hx of colon cancer (Z80.0: Family history of malignant neoplasm of digestive organs) - Will send for colonoscopy Ordered: CBC w/ Auto Diff Comprehensive Metabolic Panel [facility] [place] [facility] [place] Ambulatory Referral Lipid Panel TSH With T4fr Reflex 3. FHx: genetic disorder (Z84.89: Family history of other specified conditions) - Send to genetic counseling Ordered: CBC w/ Auto Diff Comprehensive Metabolic Panel [facility] [place] [facility] [place] Ambulatory Referral Lipid Panel TSH With T4fr Reflex 4. BMI 35.0-35.9,adult (Z68.35: Body mass index [BMI] 35.0-35.9, adult) - BMI education given. - Discussed diet and exercise Ordered: CBC w/ Auto Diff Comprehensive Metabolic Panel [facility] [place] [facility] [place] Ambulatory Referral Lipid Panel TSH With T4fr Reflex 5. Class 1 obesity due to excess calories in adult (E66.09: Other obesity due to excess calories) - As above. Ordered: CBC w/ Auto Diff Comprehensive Metabolic Panel [facility] [place] Ref[place] [facility] [place] Ambulatory Referral Lipid [...] diphtheria/pertussis, acel/tetanus adult 07/15/2011 Recorded Normal [facility] Comment on above: Result Comment: Elec tronically Signed By: Joshua NASSAR, Ozzy Doe\.br\Date and Time Signed: 12/13/22 17:24 EDT PREG HCG QUALon 03-17-2021 , QUAL Negative Normal NEGATIVE [facility] Comment on above: Performed By: #### P REG #### [facility] [address] [place], [place] [address] Marcus Rodrigez ASYMPTOMATIC COVID-19 ANTIGE Non 03-14-2021 EUA Statement SEE BELOW Normal [facility] Comment on above: Result Comment: This test [...] revoked sooner. Performed By: #### C VDAGA ####[facility] [address] [place], [place] [address]IssttjMarcus Rodrigez SARS-CoV-2 (COVID-19) RNA DREW+probe Ql (Unsp spec) Negative Normal NEGATIVE [facility] Comment on above: Result Comment: Nega tive results are presumptive. They do not preclude infection and should not be used as the sole basis for treatment decisions. Additional confirmatory testing by a molecular method should be considered. Performed By: #### C VDAGA ####[facility] [address] [place] [id number] Rodrigez CBC AUTO DIFFon 03-04-2021 BASO # 0.0 103/ul Normal 0.0-0.1 [facility] Comment on above: Performed By: #### C BC ####[facility] [address] [place] [id number] Rain Basophils/100 WBC (Bld) 0.3 % Normal 0.2-2.0 [facility] Comment on above: Performed By: #### C BC ####[facility] [address] [place] [address] Rain EO # 0.4 103/ul Normal 0.0-0.7 [facility] Comment on above: Performed By: #### C BC ####[facility] [address] Rain Eosinophils/100 WBC (Bld) 4.6 % Normal 0.9-7.0 [facility] Comment on above: Performed By: #### C BC ####[facility] [address] [place] [address] Rain Erythrocyte distribution width (RBC) [Ratio] 13.6 % Normal 11.0-15.0 [facility] Comment on above: Performed By: #### C BC ####[facility] [address] [place] [id number] Rain Hematocrit (Bld) [Volume fraction] 41.4 % Normal 36.0-48.0 [facility] Comment on above: Performed By: #### C BC ####[facility] [address] [place] [id number] Rain Hemoglobin (Bld) [Mass/Vol] 13.4 g/dL Normal 12.0-16.0 [facility] Comment on above: Performed By: #### C BC ####[facility] [address] [place] [address] Rain IG # 0.03 10e3/ul Normal 0.00-0.03 [facility] Comment on above: Performed By: #### C BC ####[facility] [address] Rain IG % 0.4 % Normal 0.0-0.5 [facility] Comment on above: Performed By: #### C BC ####[facility] [address] Rain LYMPH # 2.6 103/ul Normal 1.2-3.8 [facility] Comment on above: Performed By: #### C BC ####[facility] [address] [place] [address] Rain Lymphocytes/100 WBC (Bld) 34.6 % Normal 20.5-60.0 [facility] Comment on above: Performed By: #### C BC ####[facility] [address] [place] [address] Rain MANUAL DIFF REQ NO Normal [facility] Comment on above: Performed By: #### C BC ####[facility] [address] [place] [address] Rain MCH (RBC) [Entitic mass] 27.7 pg Normal 26.7-34.0 [facility] Comment on above: Performed By: #### C BC ####[facility] [address] [place] [address] Rain MCHC (RBC) [Mass/Vol] 32.4 g/dL Normal 29.9-35.2 [facility] Comment on above: Performed By: #### C BC ####[facility] [address] [place] [address] Rain MCV (RBC) [Entitic vol] 85.7 fL Normal 81.0-99.0 [facility] Comment on above: Performed By: #### C BC ####[facility] [address] [place] [address] Rain MONO # 0.6 103/ul Normal 0.3-0.8 [facility] Comment on above: Performed By: #### C BC ####[facility] [address] [place], [place] [address]Nexfzu Karen Monocytes/100 WBC (Bld) 7.8 % Normal 1.7-12.0 [facility] Comment on above: Performed By: #### C BC ####[facility] [address] [place], [place] [address]Awviwn Rain NEUT # 4.0 103/ul Normal 1.4-6.5 [facility] Comment on above: Performed By: #### C BC ####[facility] [address] [place], [place] [address]Rbwjpj Rain Neutrophils/100 WBC (Bld) 52.3 % Normal 43.0-75.0 [facility] Comment on above: Performed By: #### C BC ####[facility] [address] [place], [place] [address]Gerjese Rodrigez Platelet mean volume (Bld) [Entitic vol] 10.7 fL Normal 9.5-13.5 [facility] Comment on above: Performed By: #### C BC ####[facility] [address] [place] [address]Qdnzms Rain PLT 291 103/ul Normal 150-450 [facility] Comment on above: Performed By: #### C BC ####[facility] [address] [place] [address]Mfzynu Rain RBC 4.83 106/ul Normal 4.20-5.40 [facility] Comment on above: Performed By: #### C BC ####[facility] [address] [place] [address]Debjfi Rain WBC 7.6 103/ul Normal 4.0-11.0 [facility] Comment on above: Performed By: #### C BC ####[facility] [address] [place] [address]Xajfyr Karen PROTIMEon 03-04-2021 INR Coag (PPP) [Relative time] 1.00 {INR} Normal [facility] Comment on above: Performed By: #### P TT, PT ####[facility] [address] [place], [place] [address]HmhscoMarcus Rodrigez INR GUIDELINES SEE BELOW Normal [facility] Comment on above: Result Comment: LEW RED INR: 2.0 - 3.0 CONDITIONS NOT LISTED BELOW 2.5 - 3.5 FOR PROSTHETIC HEART VALVE REPLACEMENT 2.5 - 3.5 RECURRENT THROMBOSIS Performed By: #### P TT, PT ####[facility] [address] [place] [address]Marcus Rodrigez PT Coag (PPP) [Time] 10.8 s Normal 9.0-11.6 [facility] Comment on above: Performed By: #### P TT, PT ####[facility] [address] [place] [id number] Rodrigez PTTon 03-04-2021 aPTT Coag (Bld) [Time] 27.9 s Normal 22.3-36.2 [facility] Comment on above: Performed By: #### P TT, PT ####[facility] [address] [place] [id number] Rodrigez CBC AUTO DIFFon 01-14-2021 BASO # 0.0 103/ul Normal 0.0-0.1 [facility] Comment on above: Performed By: #### C BC #### [facility] [address] [place], [place] [address] Marcus Rain Basophils/100 WBC (Bld) 0.4 % Normal 0.2-2.0 [facility] Comment on above: Performed By: #### C BC #### [facility] [address] [place], [place] [address] Marcus Rain EO # 0.4 103/ul Normal 0.0-0.7 [facility] Comment on above: Performed By: #### C BC #### [facility] [address] [place], [place] [address] Marcus Rain Eosinophils/100 WBC (Bld) 4.6 % Normal 0.9-7.0 [facility] Comment on above: Performed By: #### C BC #### [facility] [address] [place], [place] [address] Marcusjese Rodrigez Erythrocyte distribution width (RBC) [Ratio] 13.4 % Normal 11.0-15.0 [facility] Comment on above: Performed By: #### C BC #### [facility] [address] [place] [address] Marcusjese Rodrigez Hematocrit (Bld) [Volume fraction] 40.3 % Normal 36.0-48.0 [facility] Comment on above: Performed By: #### C BC #### [facility] [address] [place] [address] Marcus Rain Hemoglobin (Bld) [Mass/Vol] 13.3 g/dL Normal 12.0-16.0 [facility] Comment on above: Performed By: #### C BC #### [facility] [address] [place] [address] Marcusjese Rodrigez IG # 0.02 10e3/ul Normal 0.00-0.03 [facility] Comment on above: Performed By: #### C BC #### [facility] [address] [place] [address] Marcus Rain IG % 0.2 % Normal 0.0-0.5 [facility] Comment on above: Performed By: #### C BC #### [facility] [address] [place] [address] Marcus Rain LYMPH # 3.3 103/ul Normal 1.2-3.8 [facility] Comment on above: Performed By: #### C BC #### [facility] [address] [place] [address] Marcus Rodrigez Lymphocytes/100 WBC (Bld) 35.7 % Normal 20.5-60.0 [facility] Comment on above: Performed By: #### C BC #### [facility] [address] [place] [address] Marcus Rodrigez MANUAL DIFF REQ NO Normal [facility] Comment on above: Performed By: #### C BC #### [facility] [address] [place] [address] Marcus Rodrigez MCH (RBC) [Entitic mass] 27.9 pg Normal 26.7-34.0 [facility] Comment on above: Performed By: #### C BC #### [facility] [address] [place] [id number] Marcus Rodrigez MCHC (RBC) [Mass/Vol] 33.0 g/dL Normal 29.9-35.2 [facility] Comment on above: Performed By: #### C BC #### [facility] [address] [place] [id number] Marcus Rodrigez MCV (RBC) [Entitic vol] 84.7 fL Normal 81.0-99.0 [facility] Comment on above: Performed By: #### C BC #### [facility] [address] [place], [place] [address] Marcus Rodrigez MONO # 0.7 103/ul Normal 0.3-0.8 [facility] Comment on above: Performed By: #### C BC #### [facility] [address] [place], [place] [address] Marcus Rodrigez Monocytes/100 WBC (Bld) 7.1 % Normal 1.7-12.0 [facility] Comment on above: Performed By: #### C BC #### [facility] [address] [place], [place] [address] Marcus Rodrigez NEUT # 4.9 103/ul Normal 1.4-6.5 [facility] Comment on above: Performed By: #### C BC #### [facility] [address] [place], [place] [address] Marcus Rodrigez Neutrophils/100 WBC (Bld) 52.0 % Normal 43.0-75.0 [facility] Comment on above: Performed By: #### C BC #### [facility] [address] [place], [place] [address] Marcus Rodrigez Platelet mean volume (Bld) [Entitic vol] 10.4 fL Normal 9.5-13.5 [facility] Comment on above: Performed By: #### C BC #### [facility] [address] [place], [place] [address] Marcus Rain PLT 320 103/ul Normal 150-450 [facility] Comment on above: Performed By: #### C BC #### [facility] [address] [place], [place] [address] Marcus Rodrigez RBC 4.76 106/ul Normal 4.20-5.40 [facility] Comment on above: Performed By: #### C BC #### [facility] [address] [place], [place] [address] Marcus Rodrigez WBC 9.3 103/ul Normal 4.0-11.0 [facility] Comment on above: Performed By: #### C BC #### [facility] [address] [place], [place] [address] Marcus Rodrigez Covid-19 PCR (CVDTBH)on SARS-CoV-2 (COVID-19) RNA DREW+probe Ql (Unsp spec) Not detected Normal NOT DETECTED [facility] Comment on above: Result Comment: This test is not yet approved or cleared by the [place] FDA. When there are no FDA-approved or cleared tests available, and other criteria are met, FDA can make tests available under an emergency access mechanism called an Emergency Use Authorization (EUA). The EUA for this test is supported by the Waste Disposal Leakage Tester of Health and Human Service's (HHS's) declaration [...] SARS-CoV-2. Performed By: #### C VDTBH #### [facility] [address] [place], [place] [address] Marcus Rodrigez GLYCOHEMOGLOBIN A1Con 2020 ADA RECOMMENDATION ADA THERAPEUTIC TARGET 6.0 - 7.0 ACTION SUGGESTED > 7.0 Normal [facility] Comment on above: Performed By: #### A 1C ####[facility] [address] [place], [place] [address]Yzxmdx Rain Glucose [Mass/Vol] 126 mg/dL Normal [facility] Comment on above: Performed By: #### A 1C ####[facility] [address] [place], [place] [address]Kipcls Rain HbA1c (Bld) [Mass fraction] 6.0 % Normal <=6.0 [facility] Comment on above: Performed By: #### A 1C ####[facility] [address] [place], [place] [address]Cvacra Rain LIPID PROFILEon 01-14-2021 CHOL-HDL RATIO NORM SEE BELOW Normal [facility] Comment on above: Result Comment: 3.3 - 4.4 LOW RISK 4.4 - 7.1 AVERAGE RISK 7.1 - 11.0 MODERATE RISK >11.0 HIGH RISK Performed By: #### C MP, TSH, LIPID #### [facility] [address] [place], [place] [address] Marcus Rain Cholesterol [Mass/Vol] 180 mg/dL Normal <=200 [facility] Comment on above: Performed By: #### C MP, TSH, LIPID #### [facility] [address] [place], [place] [address] Marcus Rain Cholesterol in HDL [Mass/Vol] 52 mg/dL Normal [facility] Comment on above: Performed By: #### C MP, TSH, LIPID #### [facility] [address] [place], [place] [address] Marcus Rain Cholesterol in LDL [Mass/Vol] 107.8 mg/dL Normal [facility] Comment on above: Performed By: #### C MP, TSH, LIPID #### [facility] [address] [place], [place] [address] Marcus Rain Cholesterol.total/Cho lesterol in HDL [Mass ratio] 3.5 {ratio} Normal [facility] Comment on above: Performed By: #### C MP, TSH, LIPID #### [facility] [address] [place], [place] [address] Marcus Rain HDL NORMAL > or = 60 mg/dl - LO W CARDIOVASCULAR RISK <40 mg/dl - HIGH CARDIOVASCULAR RISK Normal [facility] Comment on above: Performed By: #### C MP, TSH, LIPID #### [facility] [address] [place] [id number] Marcus Rain LDL CALC NORMAL SEE BELOW Normal [facility] Comment on above: Result Comment: <100 mg/dl OPTIMAL 100 - 129 mg/dl NEAR OR ABOVE OPTIMAL 130 - 159 mg/dl BORDERLINE HIGH 160 - 189 mg/dl HIGH >190 mg/dl VERY HIGH Performed By: #### C MP, TSH, LIPID #### [facility] [address] [place] [address] Marcus Rain Triglyceride [Mass/Vol] 101 mg/dL Normal <=150 [facility] Comment on above: Performed By: #### C MP, TSH, LIPID #### [facility] [address] [place] [id number] Marcus Rain VLDL CALC 20.2 mg/dL Normal [facility] Comment on above: Performed By: #### C MP, TSH, LIPID #### [facility] [address] [place] [id number] Marcus Rain PROF 14(COMP METB)on 021 Albumin [Mass/Vol] 3.9 g/dL Normal 3.5-5.0 [facility] Comment on above: Performed By: #### C MP, TSH, LIPID #### [facility] [address] [place], [place] [address] Marcus Rain Albumin/Globulin [Mass ratio] 1.1 {ratio} Normal [facility] Comment on above: Performed By: #### C MP, TSH, LIPID #### [facility] [address] [place] [phone] Marcus Rain ALP [Catalytic activity/Vol] 79 U/L Normal 38-126 [facility] Comment on above: Performed By: #### C MP, TSH, LIPID #### [facility] [address] [place] [phone] Marcus Rain ALT [Catalytic activity/Vol] 27 U/L Normal 9-52 [facility] Comment on above: Performed By: #### C MP, TSH, LIPID #### [facility] [address] [place] [address] Marcus Rain Anion gap [Moles/Vol] 11.5 mmol/L Normal [facility] Comment on above: Performed By: #### C MP, TSH, LIPID #### [facility] [address] [place] [address] Marcus Rain AST [Catalytic activity/Vol] 13 U/L Critically low 14-36 [facility] Comment on above: Performed By: #### C MP, TSH, LIPID #### [facility] [address] [place] [address] Marcus Rain Bilirubin [Mass/Vol] 0.3 mg/dL Normal 0.2-1.3 [facility] Comment on above: Performed By: #### C MP, TSH, LIPID #### [facility] [address] [place] [address] Marcus Rain Calcium [Mass/Vol] 9.6 mg/dL Normal 8.4-10.2 [facility] Comment on above: Performed By: #### C MP, TSH, LIPID #### [facility] [address] [place] [address] Marcus Rain Chloride [Moles/Vol] 105 mmol/L Normal 98-107 [facility] Comment on above: Performed By: #### C MP, TSH, LIPID #### [facility] [address] [place] [address] Marcus Rain CO2 [Moles/Vol] 28.2 mmol/L Normal 22.0-30.0 [facility] Comment on above: Performed By: #### C MP, TSH, LIPID #### [facility] [address] [place] [address] Marcus Rain Creatinine [Mass/Vol] 0.68 mg/dL Normal 0.52-1.04 [facility] Comment on above: Performed By: #### C MP, TSH, LIPID #### [facility] [address] [place] [address] Marcus Rain EGFR-AF RUSSIAN >60 Normal >=60 [facility] Comment on above: Performed By: #### C MP, TSH, LIPID #### [facility] [address] [place] [phone] Marcus Rain EGFR-NON AF RUSSIAN >60 Normal >=60 [facility] Comment on above: Performed By: #### C MP, TSH, LIPID #### [facility] [address] [place] [phone] Marcus Rain Globulin (S) [Mass/Vol] 3.5 g/dL Normal [facility] Comment on above: Performed By: #### C MP, TSH, LIPID #### [facility] [address] [place] [phone] Marcus Rain Glucose [Mass/Vol] 98 mg/dL Normal 74-106 [facility] Comment on above: Performed By: #### C MP, TSH, LIPID #### [facility] [address] [place] [address] Marcus Rain Potassium [Moles/Vol] 3.7 mmol/L Normal 3.4-5.0 [facility] Comment on above: Performed By: #### C MP, TSH, LIPID #### [facility] [address] [place] [address] Marcus Rain Protein [Mass/Vol] 7.4 g/dL Normal 6.1-8.2 [facility] Comment on above: Performed By: #### C MP, TSH, LIPID #### [facility] [address] [place], [place] [address] Marcus Rain Sodium [Moles/Vol] 141 mmol/L Normal 137-145 [facility] Comment on above: Performed By: #### C MP, TSH, LIPID #### [facility] [address] [place] [address] Marcus Rain Urea nitrogen [Mass/Vol] 18.0 mg/dL Critically high 7.0-17.0 [facility] Comment on above: Performed By: #### C MP, TSH, LIPID #### [facility] [address] [place] [phone] Marcus Rain Urea nitrogen/Creatinine [Mass ratio] 26.5 mg/mg Normal [facility] Comment on above: Performed By: #### C MP, TSH, LIPID #### [facility] [address] [place], [place] [address] Marcus Rodrigez TSHon 01-14-2021 TSH 1.136 uIU/mL Normal 0.470-4.680 [facility] Comment on above: Performed By: #### C MP, TSH, LIPID #### [facility] [address] [place], [place] [address] Marcus Rain TSH RANGE SEE BELOW Normal [facility] Comment on above: Result Comment: <0.3 4 UIU/ml HYPERTHYROID 0.34-5.60 UIU/ml EUTHYROID >5.60 UIU/ml HYPOTHYROID Performed By: #### C MP, TSH, LIPID #### [facility] [address] [place], [place] [address] Marcus Rain MG [facility] 3D KARTHIKEYAN CA Don 10-28-2020 MG [facility]AGNOST[facility] 3D KARTHIKEYAN CAD Patient: HENNY FORD Exam Date: 10/28/2020 : 1985 Gender:F Ordering : DR AOY RAMOS . Admission #: [id number] Family : Order #: [id number] CLICK HERE TO VIEW EXAM RADIOLOGY REPORT [...] pancreatic cancer at age 59. LOCATION: [facility] BREAST COMPOSITION: Heterogeneously dense, which may [...] Hampton M.D. on 10/28/2020 at 13:08 Normal [facility] US BREAST RIGHT LIMITEDon US BREAST RIGHT LIMITED Patient: HENNY FORD Exam Date: 10/28/2020 : 1985 Gender:F Ordering : DR AYO RAMOS . Admission #: [id number] Family : Order #: [id number] CLICK HERE TO VIEW EXAM RADIOLOGY REPORT [...] pancreatic cancer at age 59. LOCATION: [facility] BREAST COMPOSITION: Heterogeneously dense, which may [...] Hampton M.D. on 10/28/2020 at 13:08 Normal [facility] PAP ACOG PANEL 2: 30 to 65on 09-25-2020 . . Normal [facility] Comment on above: Result Comment: Perf ormed at: WB Performed By: #### [id number] #### [facility] [address] [place] [address] Marcus Rodrigez Age Gdln ACOG Testing 30-65 Normal [facility] Comment on above: Performed By: #### [id number] #### [facility] [address] [place] [address] Marcus Rodrigez DIAGNOSIS: Comment Normal [facility] Comment on above: Result Comment: NEGA TIVE FOR INTRAEPITHELIAL LESION OR MALIGNANCY. SPECIMEN REPROCESSED FOR INTERPRETATION. Performed at: WB Performed By: #### [id number] #### [facility] [address] [place] [address] Marcus Rain HPV Aptima Negative Normal Negative [facility] Comment on above: Result Comment: This nucleic acid amplification test detects fourteen high-risk HPV types (16,18,31,33,35,39,45,51,52,56,58,59,66,68) without differentiation. Performed at: =G Performed By: #### [id number] #### [facility] [address] [place] [address] Marcus Rodrigez Methodology: CTIM Normal [facility] Comment on above: Result Comment: The Thin Prep(R) Radio Station Operator was unable to read this specimen. Therefore a manual review was performed. Performed at: WB Performed By: #### [id number] #### [facility] [address] [place] [address] Marcus Rain Note: Comment Normal [facility] Comment on above: Result Comment: The Pap smear is a screening test designed to aid in the detection of premalignant and malignant conditions of the uterine cervix. It is not a diagnostic procedure and should not be used as the sole means of detecting cervical cancer. Both false-positive and false-negative reports do occur. . Performed at: WB Performed By: #### [id number] #### [facility] [address] [place] [address] Marcus Rodrigez Performed by: Comment Normal [facility] Comment on above: Result Comment: Vick [employer]ak[employer] ([employer]) Performed at: WB Performed By: #### [id number] #### [facility] [address] [place] [address] Marcus Rodrigez Specimen adequacy: Comment Normal [facility] Comment on above: Result Comment: Sati sfactory for evaluation. Endocervical and/or squamous metaplastic cells (endocervical component) are present. Performed at: WB Performed By: #### [id number] #### [facility] [address] [place], [place] [address] Marcus Rodrigez Encounters Encounter Date Encounter Type Care Provider Facility Start: 08-22-2023 End: 08-22-2023 ambulatory AYO RAMOS Not Available Start: 07-11-2023 End: 07-11-2023 ambulatory NICHOLAS EDWARD Not Available Start: 06-23-2023 End: 06-24-2023 ambulatory MD Ozzy Lewis Facility:[facility] Start: 12-13-2022 End: 12-14-2022 ambulatory MD Ozzy Lewis Facility:[facility] Start: 12-10-2022 ambulatory MD Ozzy Lewis Facility :[facility] Start: 12-10-2022 ambulatory MD Ozzy Lewis Facility :[facility] Start: 03-31-2021 Encounter for prepro cedural laboratory examination DR PABLO CHAMBERS [facility] Start: 03-17-2021 End: 03-17-[address] PABLO CHAMBERS Facility:[facility] Start: 03-14-2021 End: 03-15-[address] PABLO CHAMBERS Facility:[facility] Start: 03-14-2021 End: 03-15-2021 Encounter for preprocedural laboratory examination DR PABLO CHAMBERS Facility:[facility] Start: 03-04-2021 End: 03-05-2021 ambulatory OZZY LEWIS Facility:[facility] Start: 01-18-2021 Encounter for genera l adult medical examination without abnormal findings OZZY LEWIS [facility] Start: 01-13-2021 End: 01-14-2021 ambulatory OZZY LEWIS Facility:[facility] Start: 01-13-2021 End: 01-14-2021 Encounter for general adult medical examination without abnormal findings OZZY LEWIS Facility:[facility] Start: 10-28-2020 End: 10-29-[address] MADELINE FORD Facility:[facility] Start: 09-18-2020 End: 09-18-[address] AYO RAMOS Facility:[facility] Payers Date Payer Category Payer Unknown [id number] 2022 Unknown [id number] 2019 Unknown [id number] 1985 Unknown [id number] 2.16.84 [id number] 1985 Unknown [id number] 2.16.84 [id number] 1985 Unknown [id number] 2.16.84 [id number] 1985 Unknown [id number] 2.16.84 [id number] 1985 Unknown [id number] 2.16.84 [id number] 1984 Unknown [id number] 2.16.84 [id number] 1984 Unknown [id number] 2.16.8 [id number] 1985 Unknown [id number] 2.16.8 [id number] 1985 Unknown [id number] 2.16.84 [id number] 1985 Unknown [id number] 2.16.840 .[id number] Clinical Note 03-17-2021 Note Date & Type [...] to the Recovery Room in good condition. [facility] Signed and Approved by: DR PABLO CHAMBERS 03/24/2021 08:24:00 [facility] Summary Purpose Family History No Family History Records FoundNo Family History Records FoundNo Family History Records Found Advance Directives No Advanced Directives Records FoundNo Advanced Directives Records FoundNo Advanced Directives Records Found Additional Source Comments INFORMATION SOURCE (unrecogn ized section and content) DATE CREATED AUTHOR 04/02/2021 [facility] DATE CREATED AUTHOR AUTHOR'S ORGANIZ ATION 06/26/2023 [facility] DATE CREATED AUTHOR AUTHOR'S ORGANIZ ATION 08/22/2023 [facility] FOR RECORDS PERTAINING TO PATIENTS WHO [...] BE BASED ON THE PRIMARY CLINICAL RECORDS. [facility] [employer] [facility] provides no warranty or guarantee of the accuracy or completeness of information in this document.
== END 2023-08-31 12:18 | disposition home or self-care (01) ==
LOC: PST 12:18
PROVIDERS: PCP Family Medicine; Visit Provider Obstetrics & Gynecology
DX: Z01.818 Encounter for other preprocedural examination (principal); T83.39XA Other mechanical complication of intrauterine contraceptive device, initial encounter; Z30.2 Encounter for sterilization

== ENCOUNTER 2023-09-09 07:17 | Day surgery (SDC) | payer BC, SELFPAY ==
[2023-08-31 12:47] VITALS: BP 149/93; PULSE 60; RESP 20; TEMP 36.2; O2SAT 100; BMI 39.0
--- OUTSIDE RECORDS SUMMARY | 2023-09-09 07:19 | XMS_ITS | CCD ---
Author Name Unknown Address [address] [place] [address] Organization [facility] Care Team Providers Care Applications Consultant Name Role Phone RICHARD, DR ROLLINS Admitting [...] peanut allergenic extract Drug Allergy 3 [facility] Repository (1 source) peanut; Translations: [Peanuts] Food allergy (disorder) [facility] Repository (1 source) No Known Medication Allergies; Translations: [No Known Medication Allergies] Propensity to adverse reactions (disorder) 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 Physician Referralon 023 Physician Referral [id number]. 00CD:[address] [facility] Physician Referral [id number]#1. 00CD:127 [facility] Ambulatory Visit Summaryon 0 12-13-2022 Ambulatory [...] Peanuts (Hives) No Known Medication Allergies Normal [facility] Family Medicine Office/Clini c Noteon 12-13-2022 Family Medicine Office/Clinic Note Chief Complaint wellness PE HPI Staff Here for wellness PE new to the practice Establish Care: History: none Last provider: Dr Lewis when was in [place] before Any recent labs: none Health Maintenance [...] CBC w/ Auto Diff Comprehensive Metabolic Panel [facility] [place] Referral [facility] External Ambulatory Referral Lipid Panel TSH With T4fr Reflex 2. Family hx of colon cancer (Z80.0: Family history of malignant neoplasm of digestive organs) - Will send for colonoscopy Ordered: CBC w/ Auto Diff Comprehensive Metabolic Panel [facility] [place] Amb[place] Referral [facility] External Ambulatory Referral Lipid Panel TSH With T4fr Reflex 3. FHx: genetic disorder (Z84.89: Family history of other specified conditions) - Send to genetic counseling Ordered: CBC w/ Auto Diff Comprehensive Metabolic Panel [facility] [place] Referral [facility] External Ambulatory Referral Lipid Panel TSH With T4fr Reflex 4. BMI 35.0-35.9,adult (Z68.35: Body mass index [BMI] 35.0-35.9, adult) - BMI education given. - Discussed diet and exercise Ordered: CBC w/ Auto Diff Comprehensive Metabolic Panel [facility] [place] Amb[place] Referral [facility] External Ambulatory Referral Lipid Panel TSH With T4fr Reflex 5. Class 1 obesity due to excess calories in adult (E66.09: Other obesity due to excess calories) - As above. Ordered: CBC w/ Auto Diff Comprehensive Metabolic Panel [facility] [place] Amb[place] Referral [facility] External Ambulatory Referral Lipid Panel TSH With [...] diphtheria/pertussis, acel/tetanus adult 07/15/2011 Recorded Normal [facility] Comment on above: Result Comment: Elec tronically Signed By: Joshua NASSAR, Ozzy Doe\.br\Date and Time Signed: 12/13/22 17:24 EDT PREG HCG QUALon 03-17-2021 , QUAL Negative Normal NEGATIVE [facility] Comment on above: Performed By: #### P REG #### [facility] [address] [place], [place] [address] Marcus Rodrigez ASYMPTOMATIC COVID-19 ANTIGE Non 03-14-2021 EUA Statement SEE BELOW Normal [facility] Comment on above: Result Comment: This [...] revoked sooner. Performed By: #### C VDAGA ####[facility] [address] [place], [place] [address]ScqfitMarcus Rodrigez SARS-CoV-2 (COVID-19) RNA DREW+probe Ql (Unsp spec) Negative Normal NEGATIVE [facility] Comment on above: Result Comment: Nega tive results are presumptive. They do not preclude infection and should not be used as the sole basis for treatment decisions. Additional confirmatory testing by a molecular method should be considered. Performed By: #### C VDAGA ####[facility] [address] [place] [id number] Rodrigez CBC AUTO DIFFon 03-04-2021 BASO # 0.0 103/ul Normal 0.0-0.1 [facility] Comment on above: Performed By: #### C BC ####[facility] [address] [place] [id number] Rain Basophils/100 WBC (Bld) 0.3 % Normal 0.2-2.0 [facility] Comment on above: Performed By: #### C BC ####[facility] [address] [place] [address] Rain EO # 0.4 103/ul Normal 0.0-0.7 [facility] Comment on above: Performed By: #### C BC ####[facility] [address] Rain Eosinophils/100 WBC (Bld) 4.6 % Normal 0.9-7.0 [facility] Comment on above: Performed By: #### C BC ####[facility] [address] [place] [address] Rain Erythrocyte distribution width (RBC) [Ratio] 13.6 % Normal 11.0-15.0 [facility] Comment on above: Performed By: #### C BC ####[facility] [address] [place] [id number] Rain Hematocrit (Bld) [Volume fraction] 41.4 % Normal 36.0-48.0 [facility] Comment on above: Performed By: #### C BC ####[facility] [address] [place] [id number] Rain Hemoglobin (Bld) [Mass/Vol] 13.4 g/dL Normal 12.0-16.0 [facility] Comment on above: Performed By: #### C BC ####[facility] [address] [place] [address] Rain IG # 0.03 10e3/ul Normal 0.00-0.03 [facility] Comment on above: Performed By: #### C BC ####[facility] [address] Rain IG % 0.4 % Normal 0.0-0.5 [facility] Comment on above: Performed By: #### C BC ####[facility] [address]pg[address] Rain LYMPH # 2.6 103/ul Normal 1.2-3.8 [facility] Comment on above: Performed By: #### C BC ####[facility] [address] [place] [address] Rain Lymphocytes/100 WBC (Bld) 34.6 % Normal 20.5-60.0 [facility] Comment on above: Performed By: #### C BC ####[facility] [address] [place] [address] Rain MANUAL DIFF REQ NO Normal [facility] Comment on above: Performed By: #### C BC ####[facility] [address] [place] [address] Rain MCH (RBC) [Entitic mass] 27.7 pg Normal 26.7-34.0 [facility] Comment on above: Performed By: #### C BC ####[facility] [address] [place] [address] Rain MCHC (RBC) [Mass/Vol] 32.4 g/dL Normal 29.9-35.2 [facility] Comment on above: Performed By: #### C BC ####[facility] [address] [place] [address] Rain MCV (RBC) [Entitic vol] 85.7 fL Normal 81.0-99.0 [facility] Comment on above: Performed By: #### C BC ####[facility] [address] [place] [address] Rain MONO # 0.6 103/ul Normal 0.3-0.8 [facility] Comment on above: Performed By: #### C BC ####[facility] [address] [place], [place] [address]Piifnq Karen Monocytes/100 WBC (Bld) 7.8 % Normal 1.7-12.0 [facility] Comment on above: Performed By: #### C BC ####[facility] [address] [place], [place] [address]Tphnkg Rain NEUT # 4.0 103/ul Normal 1.4-6.5 [facility] Comment on above: Performed By: #### C BC ####[facility] [address] [place], [place] [address]Rfvqqa Rain Neutrophils/100 WBC (Bld) 52.3 % Normal 43.0-75.0 [facility] Comment on above: Performed By: #### C BC ####[facility] [address] [place], [place] [address]Gerjese Rodrigez Platelet mean volume (Bld) [Entitic vol] 10.7 fL Normal 9.5-13.5 [facility] Comment on above: Performed By: #### C BC ####[facility] [address] [place] [address]Xzmnmd Rain PLT 291 103/ul Normal 150-450 [facility] Comment on above: Performed By: #### C BC ####[facility] [address] [place] [address]Fupjaw Rain RBC 4.83 106/ul Normal 4.20-5.40 [facility] Comment on above: Performed By: #### C BC ####[facility] [address] [place] [address]Elsazi Rain WBC 7.6 103/ul Normal 4.0-11.0 [facility] Comment on above: Performed By: #### C BC ####[facility] [address] [place] [address]Cxqhnr Karen PROTIMEon 03-04-2021 INR Coag (PPP) [Relative time] 1.00 {INR} Normal [facility] Comment on above: Performed By: #### P TT, PT ####[facility] [address] [place], [place] [address]SetwtcMarcus Rodrigez INR GUIDELINES SEE BELOW Normal [facility] Comment on above: Result Comment: LEW RED INR: 2.0 - 3.0 CONDITIONS NOT LISTED BELOW 2.5 - 3.5 FOR PROSTHETIC HEART VALVE REPLACEMENT 2.5 - 3.5 RECURRENT THROMBOSIS Performed By: #### P TT, PT ####[facility] [address] [place] [address]Marcus Rodrigez PT Coag (PPP) [Time] 10.8 s Normal 9.0-11.6 [facility] Comment on above: Performed By: #### P TT, PT ####[facility] [address] [place] [id number] Rodrigez PTTon 03-04-2021 aPTT Coag (Bld) [Time] 27.9 s Normal 22.3-36.2 [facility] Comment on above: Performed By: #### P TT, PT ####[facility] [address] [place] [id number] Rodrigez CBC AUTO DIFFon 01-14-2021 BASO # 0.0 103/ul Normal 0.0-0.1 [facility] Comment on above: Performed By: #### C BC #### [facility] [address] [place], [place] [id number] Marcus Rain Basophils/100 WBC (Bld) 0.4 % Normal 0.2-2.0 [facility] Comment on above: Performed By: #### C BC #### [facility] [address] [place], [place] [id number] Marcus Rain EO # 0.4 103/ul Normal 0.0-0.7 [facility] Comment on above: Performed By: #### C BC #### [facility] [address] [place], [place] [id number] Marcus Rain Eosinophils/100 WBC (Bld) 4.6 % Normal 0.9-7.0 [facility] Comment on above: Performed By: #### C BC #### [facility] [address] [place], [place] [id number] Marcusjese Rodrigez Erythrocyte distribution width (RBC) [Ratio] 13.4 % Normal 11.0-15.0 [facility] Comment on above: Performed By: #### C BC #### [facility] [address] [place] [address] Marcusjese Rodrigez Hematocrit (Bld) [Volume fraction] 40.3 % Normal 36.0-48.0 [facility] Comment on above: Performed By: #### C BC #### [facility] [address] [place] [address] Marcus Rain Hemoglobin (Bld) [Mass/Vol] 13.3 g/dL Normal 12.0-16.0 [facility] Comment on above: Performed By: #### C BC #### [facility] [address] [place] [address] Marcusjese Rodrigez IG # 0.02 10e3/ul Normal 0.00-0.03 [facility] Comment on above: Performed By: #### C BC #### [facility] [address] [place] [address] Marcus Rain IG % 0.2 % Normal 0.0-0.5 [facility] Comment on above: Performed By: #### C BC #### [facility] [address] [place] [address] Marcus Rain LYMPH # 3.3 103/ul Normal 1.2-3.8 [facility] Comment on above: Performed By: #### C BC #### [facility] [address] [place] [address] Marcus Rodrigez Lymphocytes/100 WBC (Bld) 35.7 % Normal 20.5-60.0 [facility] Comment on above: Performed By: #### C BC #### [facility] [address] [place] [address] Marcus Rodrigez MANUAL DIFF REQ NO Normal [facility] Comment on above: Performed By: #### C BC #### [facility] [address] [place] [address] Marcus Rodrigez MCH (RBC) [Entitic mass] 27.9 pg Normal 26.7-34.0 [facility] Comment on above: Performed By: #### C BC #### [facility] [address] [place] [id number] Marcus Rodrigez MCHC (RBC) [Mass/Vol] 33.0 g/dL Normal 29.9-35.2 [facility] Comment on above: Performed By: #### C BC #### [facility] [address] [place] [id number] Marcus Rodrigez MCV (RBC) [Entitic vol] 84.7 fL Normal 81.0-99.0 [facility] Comment on above: Performed By: #### C BC #### [facility] [address] [place], [place] [id number] Marcus Rodrigez MONO # 0.7 103/ul Normal 0.3-0.8 [facility] Comment on above: Performed By: #### C BC #### [facility] [address] [place], [place] [id number] Marcus Rodrigez Monocytes/100 WBC (Bld) 7.1 % Normal 1.7-12.0 [facility] Comment on above: Performed By: #### C BC #### [facility] [address] [place], [place] [id number] Marcus Rodrigez NEUT # 4.9 103/ul Normal 1.4-6.5 [facility] Comment on above: Performed By: #### C BC #### [facility] [address] [place], [place] [id number] Marcus Rodrigez Neutrophils/100 WBC (Bld) 52.0 % Normal 43.0-75.0 [facility] Comment on above: Performed By: #### C BC #### [facility] [address] [place], [place] [id number] Marcus Rodrigez Platelet mean volume (Bld) [Entitic vol] 10.4 fL Normal 9.5-13.5 [facility] Comment on above: Performed By: #### C BC #### [facility] [address] [place], [place] [id number] Marcus Rain PLT 320 103/ul Normal 150-450 [facility] Comment on above: Performed By: #### C BC #### [facility] [address] [place], [place] [address] Marcus Rodrigez RBC 4.76 106/ul Normal 4.20-5.40 [facility] Comment on above: Performed By: #### C BC #### [facility] [address] [place], [place] [address] Marcus Rodrigez WBC 9.3 103/ul Normal 4.0-11.0 [facility] Comment on above: Performed By: #### C BC #### [facility] [address] [place], [place] [address] Marcus Rodrigez Covid-19 PCR (CVDTBH)on SARS-CoV-2 (COVID-19) RNA DREW+probe Ql (Unsp spec) Not detected Normal NOT DETECTED [facility] Comment on above: Result Comment: This test is not yet approved or cleared by the [place] FDA. When there are no FDA-approved or cleared tests available, and other criteria are met, FDA can make tests available under an emergency access mechanism called an Emergency Use Authorization (EUA). The EUA for this test is supported by the Security Installation Sales Technician of Health and Human Service's (HHS's) declaration [...] SARS-CoV-2. Performed By: #### C VDTBH #### [facility] [address] [place], [place] [address] Marcus Rodrigez GLYCOHEMOGLOBIN A1Con 2020 ADA RECOMMENDATION ADA THERAPEUTIC TARGET 6.0 - 7.0 ACTION SUGGESTED > 7.[address] [facility] Comment on above: Performed By: #### A 1C ####[facility] [address] [place], [place] [address]Wvtpek Rain Glucose [Mass/Vol] 126 mg/dL Normal [facility] Comment on above: Performed By: #### A 1C ####[facility] [address] [place], [place] [address]Qmhgqu Rain HbA1c (Bld) [Mass fraction] 6.0 % Normal <=6.0 [facility] Comment on above: Performed By: #### A 1C ####[facility] [address] [place], [place] [address]Xosdfg Rain LIPID PROFILEon 01-14-2021 CHOL-HDL RATIO NORM SEE BELOW Normal [facility] Comment on above: Result Comment: 3.3 - 4.4 LOW RISK 4.4 - 7.1 AVERAGE RISK 7.1 - 11.0 MODERATE RISK >11.0 HIGH RISK Performed By: #### C MP, TSH, LIPID #### [facility] [address] [place], [place] [address] Marcus Rain Cholesterol [Mass/Vol] 180 mg/dL Normal <=200 [facility] Comment on above: Performed By: #### C MP, TSH, LIPID #### [facility] [address] [place], [place] [address] Marcus Rain Cholesterol in HDL [Mass/Vol] 52 mg/dL Normal [facility] Comment on above: Performed By: #### C MP, TSH, LIPID #### [facility] [address] [place], [place] [address] Marcus Rain Cholesterol in LDL [Mass/Vol] 107.8 mg/dL Normal [facility] Comment on above: Performed By: #### C MP, TSH, LIPID #### [facility] [address] [place], [place] [address] Marcus Rain Cholesterol.total/Cho lesterol in HDL [Mass ratio] 3.5 {ratio} Normal [facility] Comment on above: Performed By: #### C MP, TSH, LIPID #### [facility] [address] [place], [place] [address] Marcus Rain HDL NORMAL > or = 60 mg/dl - LO W CARDIOVASCULAR RISK <40 mg/dl - HIGH CARDIOVASCULAR RISK Normal [facility] Comment on above: Performed By: #### C MP, TSH, LIPID #### [facility] [address] [place] [id number] Marcus Rain LDL CALC NORMAL SEE BELOW Normal [facility] Comment on above: Result Comment: <100 mg/dl OPTIMAL 100 - 129 mg/dl NEAR OR ABOVE OPTIMAL 130 - 159 mg/dl BORDERLINE HIGH 160 - 189 mg/dl HIGH >190 mg/dl VERY HIGH Performed By: #### C MP, TSH, LIPID #### [facility] [address] [place] [address] Marcus Rain Triglyceride [Mass/Vol] 101 mg/dL Normal <=150 [facility] Comment on above: Performed By: #### C MP, TSH, LIPID #### [facility] [address] [place] [id number] Marcus Rain VLDL CALC 20.2 mg/dL Normal [facility] Comment on above: Performed By: #### C MP, TSH, LIPID #### [facility] [address] [place] [id number] Marcus Rain PROF 14(COMP METB)on 021 Albumin [Mass/Vol] 3.9 g/dL Normal 3.5-5.0 [facility] Comment on above: Performed By: #### C MP, TSH, LIPID #### [facility] [address] [place], [place] [id number] Marcus Rain Albumin/Globulin [Mass ratio] 1.1 {ratio} Normal [facility] Comment on above: Performed By: #### C MP, TSH, LIPID #### [facility] [address] [place] [id number] Marcus Rain ALP [Catalytic activity/Vol] 79 U/L Normal 38-126 [facility] Comment on above: Performed By: #### C MP, TSH, LIPID #### [facility] [address] [place] [id number] Marcus Rain ALT [Catalytic activity/Vol] 27 U/L Normal 9-52 [facility] Comment on above: Performed By: #### C MP, TSH, LIPID #### [facility] [address] [place] [address] Marcus Rain Anion gap [Moles/Vol] 11.5 mmol/L Normal Th [facility] Comment on above: Performed By: #### C MP, TSH, LIPID #### [facility] [address] [place] [address] Marcus Rain AST [Catalytic activity/Vol] 13 U/L Critically low 14-36 [facility] Comment on above: Performed By: #### C MP, TSH, LIPID #### [facility] [address] [place] [address] Marcus Rain Bilirubin [Mass/Vol] 0.3 mg/dL Normal 0.2-1.3 [facility] Comment on above: Performed By: #### C MP, TSH, LIPID #### [facility] [address] [place] [address] Marcus Rain Calcium [Mass/Vol] 9.6 mg/dL Normal 8.4-10.2 [facility] Comment on above: Performed By: #### C MP, TSH, LIPID #### [facility] [address] [place] [address] Marcus Rain Chloride [Moles/Vol] 105 mmol/L Normal 98-107 [facility] Comment on above: Performed By: #### C MP, TSH, LIPID #### [facility] [address] [place] [address] Marcus Rain CO2 [Moles/Vol] 28.2 mmol/L Normal 22.0-30.0 [facility] Comment on above: Performed By: #### C MP, TSH, LIPID #### [facility] [address] [place] [address] Marcus Rain Creatinine [Mass/Vol] 0.68 mg/dL Normal 0.52-1.04 [facility] Comment on above: Performed By: #### C MP, TSH, LIPID #### [facility] [address] [place] [address] Marcus Rain EGFR-AF SURINAMESE >60 Normal >=60 [facility] Comment on above: Performed By: #### C MP, TSH, LIPID #### [facility] [address] [place] [address] Marcus Rain EGFR-NON AF SURINAMESE >60 Normal >=60 [facility] Comment on above: Performed By: #### C MP, TSH, LIPID #### [facility] [address] [place] [address] Marcus Rain Globulin (S) [Mass/Vol] 3.5 g/dL Normal [facility] Comment on above: Performed By: #### C MP, TSH, LIPID #### [facility] [address] [place] [address] Marcus Rain Glucose [Mass/Vol] 98 mg/dL Normal 74-106 [facility] Comment on above: Performed By: #### C MP, TSH, LIPID #### [facility] [address] [place] [address] Marcus Rain Potassium [Moles/Vol] 3.7 mmol/L Normal 3.4-5.0 [facility] Comment on above: Performed By: #### C MP, TSH, LIPID #### [facility] [address] [place] [address] Marcus Rain Protein [Mass/Vol] 7.4 g/dL Normal 6.1-8.2 [facility] Comment on above: Performed By: #### C MP, TSH, LIPID #### [facility] [address] [place], [place] [address] Marcus Rain Sodium [Moles/Vol] 141 mmol/L Normal 137-145 [facility] Comment on above: Performed By: #### C MP, TSH, LIPID #### [facility] [address] [place] [address] Marcus Rain Urea nitrogen [Mass/Vol] 18.0 mg/dL Critically high 7.0-17.0 [facility] Comment on above: Performed By: #### C MP, TSH, LIPID #### [facility] [address] [place] [address] Marcus Rain Urea nitrogen/Creatinine [Mass ratio] 26.5 mg/mg Normal [facility] Comment on above: Performed By: #### C MP, TSH, LIPID #### [facility] [address] [place], [place] [address] Marcus Rodrigez TSHon 01-14-2021 TSH 1.136 uIU/mL Normal 0.470-4.[address] [facility] Comment on above: Performed By: #### C MP, TSH, LIPID #### [facility] [address] [place], [place] [address] Marcus Rain TSH RANGE SEE BELOW Normal [facility] Comment on above: Result Comment: <0.3 4 UIU/ml HYPERTHYROID 0.34-5.60 UIU/ml EUTHYROID >5.60 UIU/ml HYPOTHYROID Performed By: #### C MP, TSH, LIPID #### [facility] [address] [place], [place] [address] Marcus Rain MG [facility]M DIAGNOSTIC 3D KARTHIKEYAN CA Don 10-28-2020 MG [facility]AMM DIAGNOSTIC 3D KARTHIKEYAN CAD Patient: HENNY FORD Exam Date: 10/28/2020 : 1985 Gender:F Ordering : DR AYO RAMOS . Admission #: [id number] Family : Order #: [id number] CLICK HERE TO VIEW EXAM RADIOLOGY REPORT [...] pancreatic cancer at age 59. LOCATION: [facility] BREAST COMPOSITION: Heterogeneously dense, which may [...] Hampton M.D. on 10/28/2020 at 13:[address] [facility] US BREAST RIGHT LIMITEDon US BREAST RIGHT LIMITED Patient: HENNY FORD Exam Date: 10/28/2020 : 1985 Gender:F Ordering : DR AYO RAMOS . Admission #: [id number] Family : Order #: [id number] CLICK HERE TO VIEW EXAM RADIOLOGY REPORT [...] pancreatic cancer at age 59. LOCATION: [facility] BREAST COMPOSITION: Heterogeneously dense, which may [...] Hampton M.D. on 10/28/2020 at 13:[address] [facility] PAP ACOG PANEL 2: 30 to 65on 09-25-2020 . . Normal [facility] Comment on above: Result Comment: Perf ormed at: WB Performed By: #### [id number] #### [facility] [address] [place] [address] Marcus Rodrigez Age Gdln ACOG Testing 30-[address] [facility] Comment on above: Performed By: #### 4 [id number] #### [facility] [address] [place] [address] Marcus Rodrigez DIAGNOSIS: Comment Normal [facility] Comment on above: Result Comment: NEGA TIVE FOR INTRAEPITHELIAL LESION OR MALIGNANCY. SPECIMEN REPROCESSED FOR INTERPRETATION. Performed at: WB Performed By: #### [id number] #### [facility] [address] [place] [address] Marcus Rain HPV Aptima Negative Normal Negative [facility] Comment on above: Result Comment: This nucleic acid amplification test detects fourteen high-risk HPV types (16,18,31,33,35,39,45,51,52,56,58,59,66,68) without differentiation. Performed at: =G Performed By: #### 4 [id number] #### [facility] [address] [place] [address] Marcus Rodrigez Methodology: CTIM Normal [facility] Comment on above: Result Comment: The [facility] was unable to read this specimen. Therefore a manual review was performed. Performed at: WB Performed By: [id number] #### [facility] [address] [place] [address] Marcus Rain Note: Comment Normal [facility] Comment on above: Result Comment: The Pap smear is a screening test designed to aid in the detection of premalignant and malignant conditions of the uterine cervix. It is not a diagnostic procedure and should not be used as the sole means of detecting cervical cancer. Both false-positive and false-negative reports do occur. . Performed at: [facility] Performed By: [id number] #### [facility] [address] [place] [address] Marcus Rodrigez Performed by: Comment Normal [facility] Comment on above: Result Comment: Vick Thakkar Supervisor [employer] ([employer]) Performed at: [facility] Performed By: [id number] #### [facility] [address] [place] [address] Marcus Rodrigez Specimen adequacy: Comment Normal [facility] Comment on above: Result Comment: Sati sfactory for evaluation. Endocervical and/or squamous metaplastic cells (endocervical component) are present. Performed at: [facility] Performed By: [id number] #### [facility] [address] [place], [place] [address] Marcus Rodrigez Encounters Encounter Date Encounter Type Care Provider Facility Start: 08-22-2023 End: 08-22-2023 ambulatory AYO RAMOS Not Available Start: 07-11-2023 End: 07-11-2023 ambulatory NICHOLAS EDWARD Not Available Start: 06-23-2023 End: 06-24-2023 ambulatory MD Ozzy Lewis Facility:[facility] Start: 12-13-2022 End: 12-14-2022 ambulatory MD Ozzy Lewis Facility:[facility] Start: 12-10-2022 ambulatory MD Ozzy Lewis Facility :[facility] Start: 12-10-2022 ambulatory MD Ozzy Lewis Facility [facility] Start: 03-31-2021 Encounter for prepro cedural laboratory examination DR PABLO CHAMBERS [facility] Start: 03-17-2021 End: 03-17-[address] PABLO CHAMBERS Facility:[facility] Start: 03-14-2021 End: 03-15-[address] PABLO CHAMBERS Facility:[facility] Start: 03-14-2021 End: 03-15-2021 Encounter for preprocedural laboratory examination DR PABLO CHAMBERS Facility:[facility] Start: 03-04-2021 End: 03-05-2021 ambulatory OZZY LEWIS Facility:[facility] Start: 01-18-2021 Encounter for genera l adult medical examination without abnormal findings OZZY LEWIS [facility] Start: 01-13-2021 End: 01-14-2021 ambulatory OZZY LEWIS Facility:[facility] Start: 01-13-2021 End: 01-14-2021 Encounter for general adult medical examination without abnormal findings OZZY LEWIS Facility:[facility] Start: 10-28-2020 End: 10-29-[address] MADELINE FORD Facility:[facility] Start: 09-18-2020 End: 09-18-[address] AYO RAMOS Facility:[facility] Payers Date Payer Category Payer Unknown [id number] 2022 Unknown [id number] 2019 Unknown [id number] 1984 Unknown [id number] 2.16.84 [id number] 1984 Unknown [id number] 2.16.84 [id number] 1984 Unknown [id number] 2.16.84 [id number] 1984 Unknown [id number] 2.16.84 [id number] 1984 Unknown [id number] 2.16.84 [id number] 1984 Unknown [id number] 2.16.84 [id number] 1984 Unknown [id number] 2.16.8 [id number] 1984 Unknown [id number] 2.16.8 [id number] 1984 Unknown [id number] 2.16.84 [id number] 1984 Unknown [id number] 2.16.840 .[id number] Clinical Note 03-17-2021 Note Date & Type [...] to the Recovery Room in good condition. [facility] Signed and Approved by: DR PABLO CHAMBERS 03/24/2021 08:24:00 [facility] Summary Purpose Family History No Family History Records FoundNo Family History Records FoundNo Family History Records Found Advance Directives No Advanced Directives Records FoundNo Advanced Directives Records FoundNo Advanced Directives Records Found Additional Source Comments INFORMATION SOURCE (unrecogn ized section and content) DATE CREATED AUTHOR 04/02/2021 [facility] DATE CREATED AUTHOR AUTHOR'S ORGANIZ ATION 06/26/2023 [facility] DATE CREATED AUTHOR AUTHOR'S ORGANIZ ATION 08/22/2023 [facility] [place] [facility] FOR RECORDS PERTAINING TO PATIENTS WHO [...] BE BASED ON THE PRIMARY CLINICAL RECORDS. [facility]. provides no warranty or guarantee of the accuracy or completeness of information in this document.
[2023-09-09 07:24] LABS: Basophils Percent Auto 0.6 % (0.2-2.0); Eosinophils Absolute Auto 0.4 10^3/uL (0.0-0.7); Eosinophils Percent Auto 6.2 % (0.9-7.0); Hematocrit 39.1 % (36.0-48.0); Hemoglobin 12.8 g/dL (12.0-16.0); Immature Granulocytes Abs Auto 0.01 10^3/uL (0.00-0.03); Immature Granulocytes Pct Auto 0.2 % (0.0-0.5); Lymphocytes Absolute Auto 2.1 10^3/uL (1.2-3.8); Lymphocytes Percent Auto 31.2 % (20.5-60.0); Mean Corpuscular HGB Conc 32.7 g/dL (29.9-35.2); Mean Corpuscular Hemoglobin 28.4 pg (26.7-34.0); Mean Corpuscular Volume 86.9 fL (81.0-99.0); Mean Platelet Volume 10.2 fL (9.5-13.5); Monocytes Absolute Auto 0.6 10^3/uL (0.3-0.8); Monocytes Percent Auto 8.6 % (1.7-12.0); Neutrophils Absolute Auto 3.5 10^3/uL (1.4-6.5); Neutrophils Percent Auto 53.2 % (43.0-75.0); Platelet Count 286 10^3/uL (150-450); Red Cell Distribution Width 13.2 % (11.0-15.0); White Blood Count 6.6 10^3/uL (4.0-11.0)
[2023-09-09 07:31] VITALS: BP 151/90; PULSE 75; RESP 18; TEMP 36.4; O2SAT 100; BMI 38.7
[2023-09-09] MEDS: LACTATED RINGER'S SOLUTION 1,000 ML 50 ML IV (07:44)
[2023-09-09 07:54] LABS: HCG Quantitative <1 mIU/mL
--- NOTE | 2023-09-09 08:52 | P.ON_ITS ---
Brief Operative Note Date of procedure: 09/09/23 Pre-op diagnosis: retained iud Post-op diagnosis: same as pre-op Procedure: NAME OF PROCEDURE: Removal of retained iud, iud placement PROCEDURE: The patient was taken back to the Operating Room where she was prepped and draped in normal sterile fashion after being placed under general anesthesia without difficulty. She was also placed in the dorsal lithotomy position. A weig hted speculum was placed in the patient?s vagina. The anterior lip of the cervix was identified and grasped with a single tooth tenaculum. The polyp forcep was used to easily remove the iud after gentle dilation of the cervix, another iud was placed using the mirena apparatus without difficulty, please note pt sounded to roughly 9cm. all instruments were removed from the vagina, excellent hemostas is was noted. spong lap and needle counts correct times 2, pt taken to recovery in stable condition after being awakened by anesthesia without difficulty Anesthesia: STEPHANIE Surgeon: Merlin Edward Estimated blood loss (mL): 5 Pathology: none sent Condition: stable Disposition: PACU Urinary Catheter Management Urinary Catheter Management Straight: Cath placed during this visit: no
[2023-09-09 08:56] VITALS: BP 102/63; PULSE 78; RESP 14; TEMP 36.1; O2SAT 96
[2023-09-09 09:11] VITALS: BP 114/65; PULSE 61; RESP 16; O2SAT 96
[2023-09-09 09:41] VITALS: BP 102/68; PULSE 61; RESP 16; O2SAT 100
[2023-09-09 10:06] VITALS: BP 105/62; PULSE 58; RESP 16; O2SAT 100
== END 2023-09-09 10:06 | disposition home or self-care (01) ==
PROVIDERS: PCP Family Medicine; Visit Provider Obstetrics & Gynecology
PROC: (CPT 940; principal; 2023-09-09 08:30)
DX: Z30.433 Encounter for removal and reinsertion of intrauterine contraceptive device (principal); T83.39XA Other mechanical complication of intrauterine contraceptive device, initial encounter; I10 Essential (primary) hypertension; R10.2 Pelvic and perineal pain
CPT/HCPCS: 58300; 58301; 36415; 84702; 85025; J1100; J1885; J2250; J2405; J2704